=== PATIENT | female | born 1970 | race Caucasian/White ===

== ENCOUNTER 2017-12-10 20:43 | Emergency (ER) | payer MEDICAID, OTHER ==
[~2017-12-10] VITALS: Ht 149.9 cm; Wt 63.6 kg
[~2017-12-10 20:43] MED LIST: COMP-13; ESOM20CA33 PO; PNV1TABL56 PO
[2017-12-10] MEDS ORDERED: magnesium oxide 400mg tablet PO ONE (21:30)
[2017-12-10] MEDS ORDERED: potassium Cl 20 mEq SR tablet PO ONE (21:30)
[2017-12-10] MEDS ORDERED: folic acid 1mg tablet PO ONE (21:30)
[2017-12-10] MEDS ORDERED: thiamine 100mg tablet PO STA (21:37)
[2017-12-10 22:05] LABS: HEMATOCRIT 35.8 % (35.0-45.0); HEMOGLOBIN 11.9 g/dl (12.0-16.0); MEAN CORPUSCULAR HEMOGLOBIN 27.3 PG (27.0-31.0); MEAN CORPUSCULAR HGB CONC 33.1 % (33.0-36.5); MEAN CORPUSCULAR VOLUME 82.4 FL (78-98); MEAN PLATELET VOLUME 8.1 FL (7.4-10.4); PLATELET COUNT 407 X10'3 (140-440); RED BLOOD COUNT 4.35 X10'6 (4.20-5.60); RED CELL DISTRIBUTION WIDTH 19.9 % (11.5-14.5); WHITE BLOOD COUNT 5.6 X10'3 (4.5-11.0)
[2017-12-10 22:07] LABS: CLARITY,URINE Clear (Clear); COLOR,URINE Yellow (Yellow); GLUCOSE, URINE Negative (Neg); KETONES,URINE Negative (Neg); LEUKOCYTE ESTERASE ,URINE Negative (Neg); NITRITES, URINE Negative (Neg); OCCULT BLOOD,URINE Negative (Neg); PH,URINE 5.5 (4.8-8.0); PROTEIN,URINE Negative (Neg); UROBILINOGEN,URINE 0.2 E.U/dL (0.2-1.0)
[2017-12-10 22:09] LABS: UA COLLECTION TYPE CLN CATCH MIDSTREAM
[2017-12-10 22:16] LABS: PARTIAL THROMBOPLASTIN TIME 29 SECONDS (22-32); PROTHROMBIN TIME 10.1 SECONDS (9.0-12.0)
[2017-12-10 22:23] LABS: ALANINE AMINOTRANSFERASE 35 U/L (12-78); ALBUMIN 3.9 G/DL (3.4-5.0); ALBUMIN/GLOBULIN RATIO 0.9 (1.1-1.5); ALKALINE PHOSPHATASE 79 IU/L (46-116); ANION GAP 12 (8-16); ASPARTATE AMINO TRANSFERASE 37 U/L (10-37); BILIRUBIN,TOTAL 0.2 MG/DL (0.1-1.0); BLOOD UREA NITROGEN 5 MG/DL (7-18); BUN/CREATININE RATIO 9.6 (6.6-38.0); CALCIUM 8.5 MG/DL (8.5-10.1); CHLORIDE 103 MMOL/L (99-107); CREATININE 0.52 MG/DL (0.40-0.90); GLUCOSE 82 MG/DL (70-104); LIPASE 255 U/L (73-393); POTASSIUM 3.5 MMOL/L (3.5-5.1); SODIUM 143 MMOL/L (135-145); TOTAL CARBON DIOXIDE 27.8 MMOL/L (24-32); TOTAL PROTEIN 8.2 G/DL (6.4-8.2); eGFR > 90 ML/MIN
[2017-12-10 22:26] LABS: URINE AMPHETAMINE SCREEN NEGATIVE (Neg); URINE BARBITUATE SCREEN NEGATIVE (Neg); URINE BENZODIAZEPINES SCREEN NEGATIVE (Neg); URINE CANNABINOID SCREEN NEGATIVE (Neg); URINE COCAINE SCREEN NEGATIVE (Neg); URINE METHADONE SCREEN NEGATIVE (Neg); URINE OPIATE SCREEN NEGATIVE (Neg); URINE PHENCYCLIDINE SCREEN NEGATIVE (Neg)
[2017-12-10 22:31] LABS: ANISOCYTOSIS 2+; ELLIPTOCYTES FEW; PLATELET ESTIMATE NORMAL; TARGET CELLS 1+; TOTAL CELLS COUNTED 100
[2017-12-10 22:48] LABS: ETHANOL 0.313 GM/DL (0.0-0.010)
== END 2017-12-10 23:04 | disposition home or self-care (01) ==
LOC: ER 20:44
DX: M54.10 Radiculopathy, site unspecified (principal); F10.129 Alcohol abuse with intoxication, unspecified; I10 Essential (primary) hypertension; E11.9 Type 2 diabetes mellitus without complications
CPT/HCPCS: 36415; 80053; 80305; 80320; 81003; 83690; 83735; 84484; 85025; 85610; 85730; 86885; 86900; 86901; 93005; 99285

== ENCOUNTER 2018-06-14 17:43 | Inpatient (IN) | payer OTHER ==
[~2018-06-14] VITALS: Ht 167.6 cm; Wt 54.0 kg
[2018-06-14 18:18] LABS: HEMATOCRIT 22.9 % (35.0-45.0); HEMOGLOBIN 7.6 g/dl (12.0-16.0); MEAN CORPUSCULAR HEMOGLOBIN 28.4 PG (27.0-31.0); MEAN CORPUSCULAR VOLUME 85.9 FL (78-98); MEAN PLATELET VOLUME 8.3 FL (7.4-10.4); PLATELET COUNT 337 X10'3 (140-440); RED BLOOD COUNT 2.67 X10'6 (4.20-5.60); RED CELL DISTRIBUTION WIDTH 23.4 % (11.5-14.5)
[2018-06-14 18:29] LABS: INR 1.2 INR; PROTHROMBIN TIME 12.1 SECONDS (9.0-12.0)
[2018-06-14 18:34] LABS: TOTAL CELLS COUNTED 100
[2018-06-14 18:36] LABS: ALANINE AMINOTRANSFERASE 33 U/L (12-78); ALBUMIN 1.7 G/DL (3.4-5.0); ALBUMIN/GLOBULIN RATIO 0.3 (1.1-1.5); ALKALINE PHOSPHATASE 317 IU/L (46-116); ANION GAP 22 (8-16); ASPARTATE AMINO TRANSFERASE 112 U/L (10-37); BILIRUBIN,TOTAL 3.2 MG/DL (0.1-1.0); BLOOD UREA NITROGEN 11 MG/DL (7-18); CALCIUM 7.7 MG/DL (8.5-10.1); CHLORIDE 93 MMOL/L (99-107); CREATININE 1.38 MG/DL (0.40-0.90); GLUCOSE 92 MG/DL (70-104); LIPASE 82 U/L (73-393); PLATELET ESTIMATE NORMAL; SODIUM 131 MMOL/L (135-145); TARGET CELLS 2+; TOTAL CARBON DIOXIDE 16.2 MMOL/L (24-32); TOTAL PROTEIN 6.9 G/DL (6.4-8.2); eGFR 41 ML/MIN
[2018-06-14 18:37] LABS: HYPOCHROMASIA 1+
[2018-06-14 18:39] LABS: ANISOCYTOSIS 2+; ELLIPTOCYTES FEW
[2018-06-14 18:40] LABS: ETHANOL 0.339 GM/DL (0.0-0.010); POLYCHROMASIA FEW
[2018-06-14 18:44] LABS: POTASSIUM 2.4 MMOL/L (3.5-5.1)
[2018-06-14] MEDS ORDERED: potassium 10mEq/100ml NS w/LIDOcaine (10mg/bag) IV ONE (18:45)
[2018-06-14] MEDS ORDERED: potassium Cl 20 mEq SR tablet PO STA (18:45)
[2018-06-14] MEDS ORDERED: normal saline 1000ML IV soln IVB ONE ×2 (18:50)
[2018-06-14] MEDS: magnesium 1gm/100ml D5W IVPB 100 ML IV SCH ×2 (19:16→22:22)
[2018-06-14] MEDS ORDERED: Ivermectin 3mg tablet PO ONE ×2 (20:00)
[2018-06-14 20:29] LABS: HCG SERUM QL NEGATIVE
[2018-06-14 20:59] LABS: CLARITY,URINE CLOUDY (Clear); COLOR,URINE YELLOW (Yellow); GLUCOSE, URINE NEGATIVE (Neg); KETONES,URINE TRACE mg/dl (Neg); LEUKOCYTE ESTERASE ,URINE LARGE (Neg); NITRITES, URINE NEGATIVE (Neg); OCCULT BLOOD,URINE LARGE (Neg); PROTEIN,URINE TRACE mg/dl (Neg)
[2018-06-14 21:00] LABS: UA COLLECTION TYPE FOLEY CATH
[2018-06-14 21:06] LABS: SQUAMOUS EPITHELIAL CELL,UR MODERATE /LPF (FEW); WBC,URINE TNTC /HPF (0-4)
[2018-06-14 21:07] LABS: BACTERIA,URINE 2+ /HPF (Neg); MUCUS STRANDS FEW /LPF (Neg); WBC CLUMPS,URINE FEW /HPF (NEGATIVE)
[2018-06-14] MEDS ORDERED: CefTRIAXone 2gm/D5W 50ml 50 ML IV ONE (22:00)
[2018-06-14] MEDS ORDERED: thiamine 100mg/ml 2ml inj. IV ONE (22:05)
[2018-06-14] MEDS ORDERED: ondansetron/PF 4mg/2ml inj IV ONE (22:05)
[2018-06-14] MEDS ORDERED: vancomycin/NS 1 GM ADD-VANTAGE 250 ML IV ONE (22:30)
[2018-06-14] MEDS ORDERED: normal saline 1000ml 1,000 ML IV SCH (23:38)
[2018-06-14] MEDS ORDERED: magnesium 4gm in 100ml NS 100 ML IV PRN (23:40)
[2018-06-14] MEDS ORDERED: acetaminophen 325mg tablet PO PRN (23:40)
[2018-06-14] MEDS ORDERED: potassium Cl 40MEQ/NS 500ml 500 ML IV PRN ×2 (23:40)
[2018-06-14] MEDS ORDERED: magnesium hydroxide 30ml (MOM) UD suspension PO PRN (23:40)
[2018-06-14] MEDS ORDERED: magnesium 1gm/100ml D5W IVPB 100 ML IV PRN (23:40)
[2018-06-14] MEDS ORDERED: mag hydrox/Alum hydrox/simeth 30ml oral suspension PO PRN (23:40)
[2018-06-14 23:43] LABS: URINE AMPHETAMINE SCREEN NEGATIVE (Neg); URINE BARBITUATE SCREEN NEGATIVE (Neg); URINE BENZODIAZEPINES SCREEN NEGATIVE (Neg); URINE CANNABINOID SCREEN NEGATIVE (Neg); URINE COCAINE SCREEN NEGATIVE (Neg); URINE METHADONE SCREEN NEGATIVE (Neg); URINE OPIATE SCREEN NEGATIVE (Neg); URINE PHENCYCLIDINE SCREEN NEGATIVE (Neg)
[2018-06-14] MEDS ORDERED: haloperidol lactate 5mg/ml inj IM PRN (23:50)
[2018-06-14] MEDS ORDERED: haloperidol 5mg tablet PO PRN (23:50)
[2018-06-15] VITALS (12 sets, daily range): BP systolic 102–138; BP diastolic 56–81
[2018-06-15] MEDS ORDERED: Potassium Cl inj 20 MEQ in normal saline 1000ml 990 ML IV SCH ×2
[2018-06-15] MEDS: metroNIDAZOLE-Flagyl 500mg/NS 100 ML IV SCH ×2 (00:01→10:20)
[2018-06-15] MEDS: potassium Cl 20 mEq SR tablet PO PRN ×4 (00:01→20:25)
[2018-06-15 00:06] LABS: PHOSPHORUS 2.8 MG/DL (2.3-4.5)
[2018-06-15] MEDS: potassium Cl 20mEq in NS 1,000 ML IV SCH ×3 (00:19→17:51)
[2018-06-15] MEDS: nicotine 14mg patch - 24hr TD SCH ×2 (01:43→10:15)
[2018-06-15] MEDS: LORazepam 2 mg/ml vial IV PRN (05:40)
[2018-06-15 06:02] LABS: MEAN CORPUSCULAR HEMOGLOBIN 28.7 PG (27.0-31.0); MEAN CORPUSCULAR HGB CONC 33.1 % (33.0-36.5); MEAN CORPUSCULAR VOLUME 86.8 FL (78-98); MEAN PLATELET VOLUME 8.7 FL (7.4-10.4); PLATELET COUNT 249 X10'3 (140-440); RED BLOOD COUNT 2.41 X10'6 (4.20-5.60); RED CELL DISTRIBUTION WIDTH 23.6 % (11.5-14.5); WHITE BLOOD COUNT 17.5 X10'3 (4.5-11.0)
[2018-06-15 06:18] LABS: HEMOGLOBIN 6.9 g/dl (12.0-16.0)
[2018-06-15 06:19] LABS: HEMATOCRIT 20.9 % (35.0-45.0)
[2018-06-15 06:25] LABS: ALANINE AMINOTRANSFERASE 30 U/L (12-78); ALBUMIN 1.4 G/DL (3.4-5.0); ALBUMIN/GLOBULIN RATIO 0.3 (1.1-1.5); ALKALINE PHOSPHATASE 320 IU/L (46-116); ANION GAP 18 (8-16); ASPARTATE AMINO TRANSFERASE 151 U/L (10-37); BILIRUBIN,TOTAL 3.1 MG/DL (0.1-1.0); BLOOD UREA NITROGEN 8 MG/DL (7-18); BUN/CREATININE RATIO 9.2 (6.6-38.0); CALCIUM 6.9 MG/DL (8.5-10.1); CHLORIDE 104 MMOL/L (99-107); CHOL/HDL RATIO 11.2 (0.00-4.99); CHOLESTEROL 101 MG/DL (0-200); CREATININE 0.87 MG/DL (0.40-0.90); GLUCOSE 51 MG/DL (70-104); HDL CHOLESTEROL 9 MG/DL (35-60); LDL CHOLESTEROL 67 MG/DL (50-100); MAGNESIUM 1.9 MG/DL (1.5-2.4); SODIUM 137 MMOL/L (135-145); TOTAL CARBON DIOXIDE 15.2 MMOL/L (24-32); TOTAL PROTEIN 5.9 G/DL (6.4-8.2); TRIGLYCERIDES 158 MG/DL (20-135); eGFR 69 ML/MIN
[2018-06-15 06:41] LABS: POTASSIUM 2.8 MMOL/L (3.5-5.1)
[2018-06-15 07:13] LABS: TOTAL CELLS COUNTED 100
[2018-06-15 07:14] LABS: ELLIPTOCYTES FEW; PLATELET ESTIMATE NORMAL; TARGET CELLS 2+; TOXIC GRANULATION 2+
[2018-06-15 07:15] LABS: ANISOCYTOSIS 2+; HYPOCHROMASIA 1+; POLYCHROMASIA FEW
[2018-06-15 07:16] LABS: SMUDGE CELLS 2+
[2018-06-15] MEDS ORDERED: folic acid inj. 2 MG, thiamine inj. 100 MG, MVI, adult No.4 with vit. K 10 ML in dextro... IV SCH ×4 (08:00)
[2018-06-15] MEDS: K and/or MAG REPLACEMENT MC SCH (08:00)
[2018-06-15 08:22] LABS: C DIFF ANTIGEN POSITIVE (NEGATIVE); C DIFF SPECIMEN=DIARRHEA? ACCEPTABLE; C DIFFICILE TOXINS A&B POSITIVE (Neg)
[2018-06-15] MEDS: vancomycin 250MG/10ML UD oral solution 10ML BOTTLE PO SCH ×3 (11:59→20:25)
[2018-06-15] MEDS: folic acid 1mg tablet PO SCH (12:42)
[2018-06-15] MEDS: thiamine 100mg tablet PO SCH (12:42)
[2018-06-15] MEDS: multivitamins, therapeutics tablet PO SCH (12:42)
[2018-06-15] MEDS: vancomycin/NS 1 GM ADD-VANTAGE 250 ML IV SCH ×2 (12:43→23:00)
[2018-06-15] MEDS ORDERED: NO HOME MEDS (14:21)
[2018-06-15] MEDS ORDERED: CefTRIAXone/D5W-Rocephin 1gm 50 ML IV SCH (16:10)
[2018-06-15] MEDS ORDERED: normal saline 1000ml 1,000 ML IV ONE (20:55)
[2018-06-15] MEDS ORDERED: acetaminophen 325mg tablet PO ONE (20:55)
[2018-06-15] MEDS ORDERED: vancomycin/NS 1 GM ADD-VANTAGE 250 ML IV SCH (23:00)
[2018-06-16] VITALS (8 sets, daily range): BP systolic 95–124; BP diastolic 62–74
[2018-06-16 01:11] LABS: HEMATOCRIT 30.6 % (35.0-45.0); HEMOGLOBIN 10.4 g/dl (12.0-16.0); MEAN CORPUSCULAR HEMOGLOBIN 29.9 PG (27.0-31.0); MEAN CORPUSCULAR VOLUME 87.7 FL (78-98); MEAN PLATELET VOLUME 9.4 FL (7.4-10.4); PLATELET COUNT 157 X10'3 (140-440); RED BLOOD COUNT 3.49 X10'6 (4.20-5.60); RED CELL DISTRIBUTION WIDTH 20.3 % (11.5-14.5)
[2018-06-16] MEDS: vancomycin 250MG/10ML UD oral solution 10ML BOTTLE PO SCH ×4 (01:42→19:31)
[2018-06-16 02:22] LABS: ANISOCYTOSIS 2+; HYPOCHROMASIA 1+; PLATELET ESTIMATE NORMAL; TOTAL CELLS COUNTED 100
[2018-06-16 02:23] LABS: TARGET CELLS 1+; TOXIC GRANULATION 1+
[2018-06-16] MEDS: potassium Cl 20mEq in NS 1,000 ML IV SCH ×3 (04:19→19:31)
[2018-06-16] MEDS: potassium Cl 20 mEq SR tablet PO PRN ×2 (05:09→09:24)
[2018-06-16 05:34] LABS: BASOPHILS % (AUTO) 0.2 % (0-1); EOSINOPHILS # (AUTO) 0.1 X10'3 (0-0.9); EOSINOPHILS % (AUTO) 0.9 % (0-6); HEMATOCRIT 27.4 % (35.0-45.0); HEMOGLOBIN 9.5 g/dl (12.0-16.0); LYMPHOCYTES # (AUTO) 0.8 X10'3 (1.1-4.8); LYMPHOCYTES % (AUTO) 6.6 % (21-51); MEAN CORPUSCULAR HEMOGLOBIN 30.3 PG (27.0-31.0); MEAN CORPUSCULAR HGB CONC 34.7 % (33.0-36.5); MEAN CORPUSCULAR VOLUME 87.3 FL (78-98); MEAN PLATELET VOLUME 9.5 FL (7.4-10.4); MONOCYTES # (AUTO) 0.3 X10'3 (0-0.9); MONOCYTES % (AUTO) 2.3 % (2-12); NEUTROPHILS # (AUTO) 11.2 X10'3 (1.8-7.7); PLATELET COUNT 178 X10'3 (140-440); RED BLOOD COUNT 3.14 X10'6 (4.20-5.60); RED CELL DISTRIBUTION WIDTH 19.3 % (11.5-14.5); WHITE BLOOD COUNT 12.4 X10'3 (4.5-11.0)
[2018-06-16 05:50] LABS: ALANINE AMINOTRANSFERASE 34 U/L (12-78); ALBUMIN 1.3 G/DL (3.4-5.0); ALKALINE PHOSPHATASE 278 IU/L (46-116); ANION GAP 12 (8-16); ASPARTATE AMINO TRANSFERASE 117 U/L (10-37); BILIRUBIN,TOTAL 6.3 MG/DL (0.1-1.0); BLOOD UREA NITROGEN 6 MG/DL (7-18); BUN/CREATININE RATIO 7.7 (6.6-38.0); CALCIUM 6.8 MG/DL (8.5-10.1); CHLORIDE 106 MMOL/L (99-107); CREATININE 0.78 MG/DL (0.40-0.90); GLUCOSE 55 MG/DL (70-104); MAGNESIUM 1.4 MG/DL (1.5-2.4); SODIUM 135 MMOL/L (135-145); TOTAL CARBON DIOXIDE 16.9 MMOL/L (24-32); eGFR 79 ML/MIN
[2018-06-16 06:09] LABS: ALBUMIN/GLOBULIN RATIO 0.3 (1.1-1.5); POTASSIUM 3.3 MMOL/L (3.5-5.1); TOTAL PROTEIN 5.4 G/DL (6.4-8.2)
[2018-06-16] MEDS: K and/or MAG REPLACEMENT MC SCH (08:00)
[2018-06-16 08:37] LABS: PLATELET ESTIMATE NORMAL
[2018-06-16 08:38] LABS: ANISOCYTOSIS 2+; HYPOCHROMASIA 1+; POLYCHROMASIA FEW; TARGET CELLS FEW
[2018-06-16] MEDS: multivitamins, therapeutics tablet PO SCH (09:20)
[2018-06-16] MEDS: thiamine 100mg tablet PO SCH (09:21)
[2018-06-16] MEDS: folic acid 1mg tablet PO SCH (09:21)
[2018-06-16] MEDS: magnesium Cl slow-release 64mg tablet PO PRN (09:25)
[2018-06-16] MEDS: nicotine 14mg patch - 24hr TD SCH (09:28)
[2018-06-16] MEDS ORDERED: VANCOMYCIN LEVEL IV NR (10:30)
[2018-06-16] MEDS: vancomycin/NS 1 GM ADD-VANTAGE 250 ML IV SCH ×2 (11:48→22:54)
[2018-06-16] MEDS ORDERED: normal saline 500ml IV soln 500 ML IV ONE (20:45)
[2018-06-16] MEDS: diphenhydrAMINE 50 mg/ml inj IV PRN (21:20)
[2018-06-16] MEDS: LORazepam 2 mg/ml vial IV PRN (22:47)
[2018-06-17] VITALS: BP 120/73
[2018-06-17] MEDS: LORazepam 1 MG tablet PO PRN (00:53)
[2018-06-17] MEDS: vancomycin 250MG/10ML UD oral solution 10ML BOTTLE PO SCH ×4 (01:09→19:34)
[2018-06-17] MEDS: temazepam 15mg capsule PO PRN (01:10)
[2018-06-17] MEDS: LORazepam 2 mg/ml vial IV PRN ×7 (02:37→20:20)
[2018-06-17] MEDS: dextrose 50%-water 50ml dispensing syringe IV PRN ×2 (03:17→11:23)
[2018-06-17] MEDS: potassium Cl 20mEq in NS 1,000 ML IV SCH (04:26)
[2018-06-17 05:53] LABS: HEMATOCRIT 28.6 % (35.0-45.0); HEMOGLOBIN 9.8 g/dl (12.0-16.0); MEAN CORPUSCULAR HEMOGLOBIN 29.7 PG (27.0-31.0); MEAN CORPUSCULAR HGB CONC 34.2 % (33.0-36.5); MEAN CORPUSCULAR VOLUME 86.9 FL (78-98); MEAN PLATELET VOLUME 9.9 FL (7.4-10.4); PLATELET COUNT 173 X10'3 (140-440); RED CELL DISTRIBUTION WIDTH 20.2 % (11.5-14.5); WHITE BLOOD COUNT 12.2 X10'3 (4.5-11.0)
[2018-06-17 06:23] LABS: ANISOCYTOSIS 2+; PLATELET ESTIMATE NORMAL; POLYCHROMASIA FEW; TARGET CELLS FEW; TOTAL CELLS COUNTED 100
[2018-06-17 07:00] VITALS: BP 107/72
[2018-06-17 07:02] LABS: ALANINE AMINOTRANSFERASE 34 U/L (12-78); ALBUMIN 1.3 G/DL (3.4-5.0); ALKALINE PHOSPHATASE 331 IU/L (46-116); ANION GAP 11 (8-16); ASPARTATE AMINO TRANSFERASE 123 U/L (10-37); BILIRUBIN,TOTAL 5.4 MG/DL (0.1-1.0); BLOOD UREA NITROGEN 4 MG/DL (7-18); CHLORIDE 108 MMOL/L (99-107); CREATININE 1.01 MG/DL (0.40-0.90); GLUCOSE 76 MG/DL (70-104); MAGNESIUM 1.2 MG/DL (1.5-2.4); SODIUM 135 MMOL/L (135-145); TOTAL CARBON DIOXIDE 15.8 MMOL/L (24-32); eGFR 59 ML/MIN
[2018-06-17 07:03] LABS: ALBUMIN/GLOBULIN RATIO 0.3 (1.1-1.5); POTASSIUM 3.6 MMOL/L (3.5-5.1); TOTAL PROTEIN 5.8 G/DL (6.4-8.2)
[2018-06-17] MEDS: K and/or MAG REPLACEMENT MC SCH (08:00)
[2018-06-17] MEDS: folic acid 1mg tablet PO SCH (08:03)
[2018-06-17] MEDS: nicotine 14mg patch - 24hr TD SCH (08:03)
[2018-06-17] MEDS: multivitamins, therapeutics tablet PO SCH (08:04)
[2018-06-17] MEDS: thiamine 100mg tablet PO SCH (08:04)
[2018-06-17] MEDS: vancomycin/NS 1 GM ADD-VANTAGE 250 ML IV SCH (11:13)
[2018-06-17 11:27] VITALS: BP 102/67
[2018-06-17] MEDS ORDERED: dextrose 5%-1/2 normal saline 1,000 ML IV SCH (11:40)
[2018-06-17] MEDS: magnesium Cl slow-release 64mg tablet PO PRN (14:32)
[2018-06-17] MEDS ORDERED: Permethrin 1% 59ml topical rinse TP ONE (15:55)
[2018-06-17 18:00] VITALS: BP 97/63
[2018-06-17] MEDS ORDERED: normal saline 500ml IV soln 500 ML IV ONE ×2 (20:05→21:35)
[2018-06-18] VITALS (7 sets, daily range): BP systolic 93–120; BP diastolic 64–82
[2018-06-18] MEDS: vancomycin/NS 1 GM ADD-VANTAGE 250 ML IV SCH ×3 (00:02→23:30)
[2018-06-18] MEDS: potassium Cl 20mEq in D5-NS 1,000 ML IV SCH ×4 (00:02→21:11)
[2018-06-18] MEDS: LORazepam 1 MG tablet PO PRN ×2 (00:10→19:46)
[2018-06-18] MEDS: LORazepam 2 mg/ml vial IV PRN ×2 (02:54→05:09)
[2018-06-18] MEDS: diphenhydrAMINE 50 mg/ml inj IV PRN (02:59)
[2018-06-18] MEDS: vancomycin 250MG/10ML UD oral solution 10ML BOTTLE PO SCH ×4 (02:59→19:46)
[2018-06-18] MEDS ORDERED: morphine 2 MG/ML inj. syringe IV PRN (05:30)
[2018-06-18 05:56] LABS: ABG BASE EXCESS -10.5 mmol/L (-2.0-3.0); ABG OXYGEN SATURATION 96.5 % (95-98); ABG PCO2 (T) 26.9 mmHg (32.0-45.0); ABG PH (T) 7.335 (7.350-7.450); ABG PO2 (T) 98.8 mmHg (83-108); FCOHb 0.3 % (0.5-1.5); FLOW 2 L/min; FMetHb 0.3 % (0.3-1.12); FO2Hb 95.9 % (94-100); PATIENT TEMPERATURE 37.1; TOTAL HEMOGLOBIN 9.4 G/dl (12.0-16.0)
[2018-06-18 06:15] LABS: HEMATOCRIT 28.8 % (35.0-45.0); HEMOGLOBIN 9.8 g/dl (12.0-16.0); MEAN CORPUSCULAR HEMOGLOBIN 29.9 PG (27.0-31.0); MEAN CORPUSCULAR HGB CONC 34.1 % (33.0-36.5); MEAN CORPUSCULAR VOLUME 87.9 FL (78-98); MEAN PLATELET VOLUME 8.5 FL (7.4-10.4); PLATELET COUNT 212 X10'3 (140-440); RED BLOOD COUNT 3.28 X10'6 (4.20-5.60); RED CELL DISTRIBUTION WIDTH 20.5 % (11.5-14.5); WHITE BLOOD COUNT 10.2 X10'3 (4.5-11.0)
[2018-06-18 06:47] LABS: ALANINE AMINOTRANSFERASE 32 U/L (12-78); ALBUMIN 1.4 G/DL (3.4-5.0); ALKALINE PHOSPHATASE 330 IU/L (46-116); ASPARTATE AMINO TRANSFERASE 102 U/L (10-37); CALCIUM 7.4 MG/DL (8.5-10.1); GLUCOSE 119 MG/DL (70-104); MAGNESIUM 2.6 MG/DL (1.5-2.4); TOTAL CARBON DIOXIDE 17.9 MMOL/L (24-32); TROPONIN I < 0.04 NG/ML (0.0-0.05)
[2018-06-18 06:56] LABS: TOTAL CELLS COUNTED 100
[2018-06-18 06:57] LABS: ANISOCYTOSIS 2+
[2018-06-18 07:03] LABS: HYPOCHROMASIA 1+; PLATELET ESTIMATE NORMAL; POLYCHROMASIA 1+; TARGET CELLS 1+
[2018-06-18 07:07] LABS: ALBUMIN/GLOBULIN RATIO 0.3 (1.1-1.5)
[2018-06-18 07:14] LABS: ANION GAP 10 (8-16); BLOOD UREA NITROGEN 4 MG/DL (7-18); CREATININE 1.33 MG/DL (0.40-0.90); POTASSIUM 3.3 MMOL/L (3.5-5.1); SODIUM 140 MMOL/L (135-145); eGFR 43 ML/MIN
[2018-06-18 07:16] LABS: CHLORIDE 112 MMOL/L (99-107)
[2018-06-18] MEDS: K and/or MAG REPLACEMENT MC SCH (08:00)
[2018-06-18] MEDS: folic acid 1mg tablet PO SCH (08:24)
[2018-06-18] MEDS: thiamine 100mg tablet PO SCH (08:24)
[2018-06-18] MEDS: multivitamins, therapeutics tablet PO SCH (08:24)
[2018-06-18] MEDS: nicotine 14mg patch - 24hr TD SCH (08:35)
[2018-06-18] MEDS ORDERED: potassium Cl 20 mEq SR tablet PO PRN (12:25)
[2018-06-18] MEDS ORDERED: potassium Cl 40MEQ/NS 500ml 500 ML IV PRN ×2 (12:25)
[2018-06-18] MEDS ORDERED: magnesium 1gm/100ml D5W IVPB 100 ML IV PRN (12:25)
[2018-06-18] MEDS ORDERED: magnesium Cl slow-release 64mg tablet PO PRN (12:25)
[2018-06-18] MEDS ORDERED: magnesium 4gm in 100ml NS 100 ML IV PRN (12:25)
[2018-06-18] MEDS ORDERED: LORazepam 1 MG tablet PO PRN (23:50)
[2018-06-18] MEDS ORDERED: LORazepam 2 mg/ml vial IV PRN (23:50)
[2018-06-19] VITALS: BP 120/75
[2018-06-19] MEDS: vancomycin 250MG/10ML UD oral solution 10ML BOTTLE PO SCH ×4 (02:10→21:13)
[2018-06-19] MEDS: potassium Cl 20mEq in D5-NS 1,000 ML IV SCH (05:45)
[2018-06-19 06:09] LABS: HEMATOCRIT 25.2 % (35.0-45.0); HEMOGLOBIN 8.4 g/dl (12.0-16.0); MEAN CORPUSCULAR HEMOGLOBIN 29.6 PG (27.0-31.0); MEAN CORPUSCULAR HGB CONC 33.1 % (33.0-36.5); MEAN CORPUSCULAR VOLUME 89.3 FL (78-98); MEAN PLATELET VOLUME 8.6 FL (7.4-10.4); PLATELET COUNT 223 X10'3 (140-440); RED BLOOD COUNT 2.82 X10'6 (4.20-5.60); RED CELL DISTRIBUTION WIDTH 21.5 % (11.5-14.5); WHITE BLOOD COUNT 10.7 X10'3 (4.5-11.0)
[2018-06-19 06:52] LABS: ALANINE AMINOTRANSFERASE 36 U/L (12-78); ALBUMIN 1.2 G/DL (3.4-5.0); ALKALINE PHOSPHATASE 266 IU/L (46-116); ANION GAP 13 (8-16); ASPARTATE AMINO TRANSFERASE 90 U/L (10-37); BILIRUBIN,TOTAL 4.8 MG/DL (0.1-1.0); BLOOD UREA NITROGEN 4 MG/DL (7-18); BUN/CREATININE RATIO 2.4 (6.6-38.0); CALCIUM 7.3 MG/DL (8.5-10.1); CHLORIDE 116 MMOL/L (99-107); CREATININE 1.68 MG/DL (0.40-0.90); GLUCOSE 141 MG/DL (70-104); MAGNESIUM 2.1 MG/DL (1.5-2.4); POTASSIUM 3.6 MMOL/L (3.5-5.1); SODIUM 143 MMOL/L (135-145); eGFR 33 ML/MIN
[2018-06-19 06:54] LABS: ALBUMIN/GLOBULIN RATIO 0.3 (1.1-1.5); TOTAL PROTEIN 5.5 G/DL (6.4-8.2)
[2018-06-19 07:01] LABS: TOTAL CARBON DIOXIDE 14.5 MMOL/L (24-32)
[2018-06-19 07:04] VITALS: BP 95/66
[2018-06-19 07:19] LABS: PLATELET ESTIMATE NORMAL; TOTAL CELLS COUNTED 100
[2018-06-19 07:20] LABS: ANISOCYTOSIS 3+; HYPOCHROMASIA 1+; POLYCHROMASIA 1+; TARGET CELLS 1+
[2018-06-19] MEDS: K and/or MAG REPLACEMENT MC SCH (08:00)
[2018-06-19] MEDS: multivitamins, therapeutics tablet PO SCH (08:59)
[2018-06-19] MEDS: thiamine 100mg tablet PO SCH (08:59)
[2018-06-19] MEDS: folic acid 1mg tablet PO SCH (08:59)
[2018-06-19] MEDS: nicotine 14mg patch - 24hr TD SCH (09:00)
[2018-06-19] MEDS: sodium bicarbonate (8.4%) inj. 100 MEQ in dextrose 5%-water 1,000 ML IV SCH ×2 (10:35→21:14)
[2018-06-19 11:30] VITALS: BP 114/71
[2018-06-19] MEDS: vancomycin/NS 1 GM ADD-VANTAGE 250 ML IV SCH (13:29)
[2018-06-19] MEDS: lactobacillus rhamnosus 10,000 MMU CELLS/CAPSULE PO SCH ×2 (13:30→21:13)
[2018-06-19] MEDS: albuterol 2.5 MG/3 ML nebule NEB PRN ×2 (15:28→20:20)
[2018-06-19 20:00] VITALS: BP 105/68
[2018-06-20] VITALS: BP 102/56
[2018-06-20] MEDS: vancomycin 250MG/10ML UD oral solution 10ML BOTTLE PO SCH ×4 (03:29→20:02)
[2018-06-20] MEDS: sodium bicarbonate (8.4%) inj. 100 MEQ in dextrose 5%-water 1,000 ML IV SCH ×2 (05:55→08:54)
[2018-06-20 07:14] VITALS: BP 128/82
[2018-06-20] MEDS: K and/or MAG REPLACEMENT MC SCH (08:00)
[2018-06-20] MEDS: nicotine 14mg patch - 24hr TD SCH (08:00)
[2018-06-20] MEDS: folic acid 1mg tablet PO SCH (08:53)
[2018-06-20] MEDS: multivitamins, therapeutics tablet PO SCH (08:53)
[2018-06-20] MEDS: lactobacillus rhamnosus 10,000 MMU CELLS/CAPSULE PO SCH ×2 (08:53→20:01)
[2018-06-20] MEDS: Ivermectin 3mg tablet PO SCH (08:53)
[2018-06-20] MEDS: thiamine 100mg tablet PO SCH (08:53)
[2018-06-20] MEDS: vancomycin/NS 1 GM ADD-VANTAGE 250 ML IV SCH (10:38)
[2018-06-20 11:10] VITALS: BP 147/78
[2018-06-20] MEDS: albuterol 2.5 MG/3 ML nebule NEB SCH ×4 (12:00→23:14)
[2018-06-20] MEDS ORDERED: furosemide 40mg/4ml inj IV ONE (12:20)
[2018-06-20 13:21] LABS: MEAN PLATELET VOLUME 8.9 FL (7.4-10.4); RED CELL DISTRIBUTION WIDTH 22.1 % (11.5-14.5)
[2018-06-20 13:36] LABS: ALANINE AMINOTRANSFERASE 32 U/L (12-78); ALBUMIN 1.2 G/DL (3.4-5.0); ALKALINE PHOSPHATASE 259 IU/L (46-116); ANION GAP 10 (8-16); ASPARTATE AMINO TRANSFERASE 94 U/L (10-37); BILIRUBIN,TOTAL 5.3 MG/DL (0.1-1.0); BLOOD UREA NITROGEN 4 MG/DL (7-18); CALCIUM 7.5 MG/DL (8.5-10.1); CHLORIDE 112 MMOL/L (99-107); CREATININE 2.03 MG/DL (0.40-0.90); GLUCOSE 125 MG/DL (70-104); SODIUM 140 MMOL/L (135-145); TOTAL CARBON DIOXIDE 18.4 MMOL/L (24-32); eGFR 26 ML/MIN
[2018-06-20 13:41] LABS: ALBUMIN/GLOBULIN RATIO 0.3 (1.1-1.5); HEMATOCRIT 28.2 % (35.0-45.0); MEAN CORPUSCULAR HEMOGLOBIN 28.7 PG (27.0-31.0); MEAN CORPUSCULAR HGB CONC 31.9 % (33.0-36.5); PLATELET COUNT 291 X10'3 (140-440); RED BLOOD COUNT 3.14 X10'6 (4.20-5.60); TOTAL PROTEIN 5.9 G/DL (6.4-8.2); WHITE BLOOD COUNT 15.8 X10'3 (4.5-11.0)
[2018-06-20 13:46] LABS: POTASSIUM 2.9 MMOL/L (3.5-5.1)
[2018-06-20 14:07] LABS: ANISOCYTOSIS 3+; LARGE PLATELETS FEW; PLATELET ESTIMATE NORMAL; TOTAL CELLS COUNTED 100
[2018-06-20 14:08] LABS: HYPOCHROMASIA 1+; POLYCHROMASIA 1+; TARGET CELLS 1+
[2018-06-20 20:00] VITALS: BP 127/88
[2018-06-20] MEDS: potassium Cl 20 mEq SR tablet PO PRN (20:02)
[2018-06-21] VITALS: BP 130/73
[2018-06-21] MEDS: vancomycin 250MG/10ML UD oral solution 10ML BOTTLE PO SCH ×4 (01:51→20:11)
[2018-06-21] MEDS: potassium Cl 20 mEq SR tablet PO PRN (01:51)
[2018-06-21] MEDS: albuterol 2.5 MG/3 ML nebule NEB SCH ×6 (02:40→23:58)
[2018-06-21] MEDS: sodium bicarbonate (8.4%) inj. 100 MEQ in dextrose 5%-water 1,000 ML IV SCH (05:34)
[2018-06-21 06:05] LABS: ALBUMIN 1.1 G/DL (3.4-5.0); ANION GAP 12 (8-16); BLOOD UREA NITROGEN 5 MG/DL (7-18); CALCIUM 7.4 MG/DL (8.5-10.1); CHLORIDE 113 MMOL/L (99-107); CREATININE 2.52 MG/DL (0.40-0.90); GLUCOSE 113 MG/DL (70-104); MAGNESIUM 1.6 MG/DL (1.5-2.4); POTASSIUM 3.6 MMOL/L (3.5-5.1); SODIUM 142 MMOL/L (135-145); TOTAL CARBON DIOXIDE 17.5 MMOL/L (24-32); eGFR 20 ML/MIN
[2018-06-21 08:00] VITALS: BP 116/74
[2018-06-21] MEDS: K and/or MAG REPLACEMENT MC SCH (08:00)
[2018-06-21] MEDS: thiamine 100mg tablet PO SCH (08:43)
[2018-06-21] MEDS: nicotine 14mg patch - 24hr TD SCH (08:43)
[2018-06-21] MEDS: folic acid 1mg tablet PO SCH (08:43)
[2018-06-21] MEDS: lactobacillus rhamnosus 10,000 MMU CELLS/CAPSULE PO SCH ×2 (08:43→20:11)
[2018-06-21] MEDS: multivitamins, therapeutics tablet PO SCH (08:43)
[2018-06-21 11:00] VITALS: BP 127/75
[2018-06-21 11:55] LABS: HEMATOCRIT 29.5 % (35.0-45.0); HEMOGLOBIN 9.7 g/dl (12.0-16.0); MEAN CORPUSCULAR HEMOGLOBIN 29.6 PG (27.0-31.0); MEAN CORPUSCULAR HGB CONC 32.9 % (33.0-36.5); MEAN CORPUSCULAR VOLUME 90.1 FL (78-98); PLATELET COUNT 319 X10'3 (140-440); RED BLOOD COUNT 3.28 X10'6 (4.20-5.60); WHITE BLOOD COUNT 19.2 X10'3 (4.5-11.0)
[2018-06-21] MEDS: vancomycin/NS 1 GM ADD-VANTAGE 250 ML IV SCH (12:12)
[2018-06-21 13:15] LABS: TOTAL CELLS COUNTED 100
[2018-06-21 13:16] LABS: ANISOCYTOSIS 3+; PLATELET ESTIMATE NORMAL
[2018-06-21 13:18] LABS: TARGET CELLS 2+; TOXIC VACUOLATION 1+
[2018-06-21 13:21] LABS: POIKILOCYTOSIS FEW; POLYCHROMASIA FEW
[2018-06-21 20:00] VITALS: BP 113/81
[2018-06-22] VITALS: BP 110/64
[2018-06-22] MEDS: vancomycin 250MG/10ML UD oral solution 10ML BOTTLE PO SCH ×4 (02:50→21:12)
[2018-06-22] MEDS: albuterol 2.5 MG/3 ML nebule NEB SCH ×7 (04:24→23:06)
[2018-06-22 07:20] VITALS: BP 125/92
[2018-06-22] MEDS: K and/or MAG REPLACEMENT MC SCH ×2 (08:00→13:35)
[2018-06-22] MEDS: multivitamins, therapeutics tablet PO SCH (08:16)
[2018-06-22] MEDS: lactobacillus rhamnosus 10,000 MMU CELLS/CAPSULE PO SCH ×2 (08:16→21:12)
[2018-06-22] MEDS: folic acid 1mg tablet PO SCH (08:16)
[2018-06-22] MEDS: nicotine 14mg patch - 24hr TD SCH (08:16)
[2018-06-22] MEDS: thiamine 100mg tablet PO SCH (08:16)
[2018-06-22] MEDS ORDERED: VANCOMYCIN LEVEL IV ONE (10:30)
[2018-06-22 10:53] LABS: VANCOMYCIN,TROUGH 39.9 UG/ML (6.0-14.0)
[2018-06-22 11:08] LABS: HEMATOCRIT 27.8 % (35.0-45.0); HEMOGLOBIN 9.3 g/dl (12.0-16.0); MEAN CORPUSCULAR HEMOGLOBIN 30.2 PG (27.0-31.0); MEAN CORPUSCULAR HGB CONC 33.3 % (33.0-36.5); MEAN CORPUSCULAR VOLUME 90.4 FL (78-98); MEAN PLATELET VOLUME 9.8 FL (7.4-10.4); PLATELET COUNT 307 X10'3 (140-440); RED BLOOD COUNT 3.07 X10'6 (4.20-5.60); RED CELL DISTRIBUTION WIDTH 23.6 % (11.5-14.5); WHITE BLOOD COUNT 17.5 X10'3 (4.5-11.0)
[2018-06-22 11:14] LABS: ANION GAP 12 (8-16); BLOOD UREA NITROGEN 7 MG/DL (7-18); BUN/CREATININE RATIO 2.4 (6.6-38.0); CALCIUM 7.7 MG/DL (8.5-10.1); CHLORIDE 111 MMOL/L (99-107); CREATININE 2.91 MG/DL (0.40-0.90); GLUCOSE 112 MG/DL (70-104); POTASSIUM 3.2 MMOL/L (3.5-5.1); SODIUM 143 MMOL/L (135-145); TOTAL CARBON DIOXIDE 20.1 MMOL/L (24-32); eGFR 17 ML/MIN
[2018-06-22 11:29] VITALS: BP 107/80
[2018-06-22] MEDS: sodium bicarbonate (8.4%) inj. 100 MEQ in dextrose 5%-water 1,000 ML IV SCH ×2 (12:55→18:05)
[2018-06-22 12:56] LABS: TOTAL CELLS COUNTED 100
[2018-06-22 12:57] LABS: ANISOCYTOSIS 3+; PLATELET ESTIMATE NORMAL; TARGET CELLS 2+
[2018-06-22 12:58] LABS: POLYCHROMASIA FEW
[2018-06-22 12:59] LABS: LARGE PLATELETS FEW
[2018-06-22 13:04] LABS: TOXIC VACUOLATION FEW
[2018-06-22] MEDS ORDERED: potassium Cl oral solution 20 MEQ/15 ML PO PRN (13:35)
[2018-06-22] MEDS ORDERED: potassium Cl 40MEQ/NS 500ml 500 ML IV PRN ×2 (13:35)
[2018-06-22] MEDS: potassium Cl oral solution 20 MEQ/15 ML PO PRN ×3 (14:08→21:22)
[2018-06-22 20:00] VITALS: BP 145/87
[2018-06-22 21:33] LABS: ALANINE AMINOTRANSFERASE 27 U/L (12-78); ALKALINE PHOSPHATASE 251 IU/L (46-116); ANION GAP 9 (8-16); ASPARTATE AMINO TRANSFERASE 99 U/L (10-37); BILIRUBIN,TOTAL 5.7 MG/DL (0.1-1.0); BLOOD UREA NITROGEN 9 MG/DL (7-18); CALCIUM 7.6 MG/DL (8.5-10.1); CHLORIDE 109 MMOL/L (99-107); CREATININE 2.98 MG/DL (0.40-0.90); GLUCOSE 93 MG/DL (70-104); MAGNESIUM 1.6 MG/DL (1.5-2.4); POTASSIUM 3.6 MMOL/L (3.5-5.1); SODIUM 140 MMOL/L (135-145); TOTAL CARBON DIOXIDE 21.6 MMOL/L (24-32); eGFR 17 ML/MIN
[2018-06-22 21:35] LABS: ALBUMIN/GLOBULIN RATIO 0.2 (1.1-1.5); PHOSPHORUS 2.1 MG/DL (2.3-4.5); TOTAL PROTEIN 5.9 G/DL (6.4-8.2)
[2018-06-23] VITALS: BP 140/70
[2018-06-23 00:56] LABS: CLARITY,URINE SLIGHTLY CLOUDY (Clear); COLOR,URINE YELLOW (Yellow); GLUCOSE, URINE NEGATIVE (Neg); KETONES,URINE NEGATIVE (Neg); LEUKOCYTE ESTERASE ,URINE TRACE (Neg); NITRITES, URINE NEGATIVE (Neg); OCCULT BLOOD,URINE SMALL (Neg); PROTEIN,URINE TRACE mg/dl (Neg); UROBILINOGEN,URINE 0.2 E.U/dL (0.2-1.0)
[2018-06-23 01:03] LABS: UA COLLECTION TYPE OTHER
[2018-06-23 01:06] LABS: BACTERIA,URINE FEW /HPF (Neg); RBC,URINE 0-2 /HPF (0-2); SQUAMOUS EPITHELIAL CELL,UR MODERATE /LPF (FEW); WBC,URINE 0-4 /HPF (0-4); YEAST MANY /HPF (NEGATIVE)
[2018-06-23 01:07] LABS: TOTAL PROTEIN,URINE RANDOM 85.1 MG/DL
[2018-06-23] MEDS: vancomycin 250MG/10ML UD oral solution 10ML BOTTLE PO SCH ×4 (02:30→19:23)
[2018-06-23] MEDS: VANCOMYCIN LEVEL IV SCH (03:00)
[2018-06-23] MEDS: albuterol 2.5 MG/3 ML nebule NEB SCH ×6 (03:15→23:19)
[2018-06-23] MEDS ORDERED: vancomycin/NS 1 GM ADD-VANTAGE 250 ML IV PRN (08:00)
[2018-06-23] MEDS: K and/or MAG REPLACEMENT MC SCH ×2 (08:00)
[2018-06-23 08:12] VITALS: BP 151/104
[2018-06-23] MEDS: multivitamins, therapeutics tablet PO SCH (08:17)
[2018-06-23] MEDS: thiamine 100mg tablet PO SCH (08:17)
[2018-06-23] MEDS: folic acid 1mg tablet PO SCH (08:17)
[2018-06-23] MEDS: lactobacillus rhamnosus 10,000 MMU CELLS/CAPSULE PO SCH ×2 (08:17→19:23)
[2018-06-23] MEDS: nicotine 14mg patch - 24hr TD SCH (08:17)
[2018-06-23 11:07] LABS: HEMATOCRIT 26.9 % (35.0-45.0); HEMOGLOBIN 9.4 g/dl (12.0-16.0); MEAN CORPUSCULAR HEMOGLOBIN 31.4 PG (27.0-31.0); MEAN CORPUSCULAR VOLUME 89.9 FL (78-98); MEAN PLATELET VOLUME 10.4 FL (7.4-10.4); PLATELET COUNT 284 X10'3 (140-440); RED BLOOD COUNT 2.99 X10'6 (4.20-5.60); RED CELL DISTRIBUTION WIDTH 23.1 % (11.5-14.5); WHITE BLOOD COUNT 17.6 X10'3 (4.5-11.0)
[2018-06-23 11:29] LABS: ANISOCYTOSIS 3+; LYMPHOCYTES % (MANUAL) 4 % (21-51); MONOCYTES % (MANUAL) 6 % (2-12); NEUTROPHILS % (MANUAL) 90 % (42-75); PLATELET ESTIMATE NORMAL; TARGET CELLS 2+; TOTAL CELLS COUNTED 100
[2018-06-23 11:30] LABS: TOXIC VACUOLATION FEW
[2018-06-23 12:20] VITALS: BP 144/108
[2018-06-23 20:00] VITALS: BP 129/81
[2018-06-23] MEDS ORDERED: lactobacillus rhamnosus 10,000 MMU CELLS/CAPSULE PO SCH (20:00)
[2018-06-24] VITALS: BP 133/82
[2018-06-24] MEDS: sodium bicarbonate (8.4%) inj. 100 MEQ in dextrose 5%-water 1,000 ML IV SCH (02:19)
[2018-06-24] MEDS: vancomycin 250MG/10ML UD oral solution 10ML BOTTLE PO SCH ×4 (02:19→20:28)
[2018-06-24] MEDS: VANCOMYCIN LEVEL IV SCH (03:00)
[2018-06-24] MEDS: albuterol 2.5 MG/3 ML nebule NEB SCH ×6 (05:01→22:51)
[2018-06-24 06:53] LABS: ALBUMIN 1.1 G/DL (3.4-5.0); ANION GAP 10 (8-16); BLOOD UREA NITROGEN 16 MG/DL (7-18); BUN/CREATININE RATIO 4.9 (6.6-38.0); CALCIUM 7.5 MG/DL (8.5-10.1); CHLORIDE 106 MMOL/L (99-107); CREATININE 3.28 MG/DL (0.40-0.90); GLUCOSE 98 MG/DL (70-104); POTASSIUM 3.2 MMOL/L (3.5-5.1); SODIUM 139 MMOL/L (135-145); TOTAL CARBON DIOXIDE 23.1 MMOL/L (24-32); VANCOMYCIN,RANDOM 31.4 UG/ML; eGFR 15 ML/MIN
[2018-06-24 07:01] VITALS: BP 144/96
[2018-06-24] MEDS: K and/or MAG REPLACEMENT MC SCH ×2 (07:43)
[2018-06-24] MEDS: lactobacillus rhamnosus 10,000 MMU CELLS/CAPSULE PO SCH ×2 (08:05→20:28)
[2018-06-24] MEDS: multivitamins, therapeutics tablet PO SCH (08:05)
[2018-06-24] MEDS: thiamine 100mg tablet PO SCH (08:05)
[2018-06-24] MEDS: folic acid 1mg tablet PO SCH (08:05)
[2018-06-24] MEDS: nicotine 14mg patch - 24hr TD SCH (08:06)
[2018-06-24] MEDS: potassium Cl oral solution 20 MEQ/15 ML PO PRN ×3 (08:46→18:35)
[2018-06-24 11:49] VITALS: BP 140/82
[2018-06-24 12:37] LABS: HEMATOCRIT 27.6 % (35.0-45.0); HEMOGLOBIN 9.2 g/dl (12.0-16.0); MEAN CORPUSCULAR HGB CONC 33.4 % (33.0-36.5); MEAN CORPUSCULAR VOLUME 89.8 FL (78-98); MEAN PLATELET VOLUME 10.2 FL (7.4-10.4); PLATELET COUNT 328 X10'3 (140-440); RED BLOOD COUNT 3.08 X10'6 (4.20-5.60); RED CELL DISTRIBUTION WIDTH 25.2 % (11.5-14.5); WHITE BLOOD COUNT 16.6 X10'3 (4.5-11.0)
[2018-06-24 13:28] LABS: ANISOCYTOSIS 3+; HYPOCHROMASIA 1+; NUCLEATED RED BLOOD CELLS 3 /100WBC (0-0); PLATELET ESTIMATE NORMAL; TARGET CELLS 2+; TOTAL CELLS COUNTED 100
[2018-06-24] MEDS: albumin (human) 25% 100 ML IV solution IV SCH ×2 (15:14→23:48)
[2018-06-24] MEDS ORDERED: fluconazole 150mg tablet PO ONE (15:40)
[2018-06-24] MEDS ORDERED: furosemide 20 MG/2 ML vial IV SCH (16:00)
[2018-06-24] MEDS: fluconazole 100mg tablet PO SCH (16:29)
[2018-06-24] MEDS ORDERED: furosemide 20 MG/2 ML vial IV ONE (17:35)
[2018-06-24 19:00] VITALS: BP 153/85
[2018-06-24] MEDS: furosemide 40mg/4ml inj IV SCH (23:46)
[2018-06-25] VITALS (20 sets, daily range): BP systolic 116–196; BP diastolic 75–94
[2018-06-25 01:51] LABS: ABG BASE EXCESS -2.8 mmol/L (-2.0-3.0); ABG OXYGEN SATURATION 92.2 % (95-98); ABG PCO2 (T) 38.7 mmHg (32.0-45.0); ABG PH (T) 7.375 (7.350-7.450); ABG PO2 (T) 72.1 mmHg (83-108); ALLEN'S TEST Positive; FCOHb 0.2 % (0.5-1.5); FLOW 12 L/min; FMetHb 0.3 % (0.3-1.12); FO2Hb 91.7 % (94-100); PATIENT TEMPERATURE 37.5; TOTAL HEMOGLOBIN 8.6 G/dl (12.0-16.0)
[2018-06-25] MEDS: albuterol 2.5 MG/3 ML nebule NEB SCH ×2 (02:11→07:33)
[2018-06-25] MEDS ORDERED: guaiFENesin ER 600mg tablet PO ONE (02:15)
[2018-06-25] MEDS ORDERED: guaiFENesin/DM 10ml UD oral syrup PO PRN (02:15)
[2018-06-25] MEDS: vancomycin 250MG/10ML UD oral solution 10ML BOTTLE PO SCH ×4 (02:39→19:38)
[2018-06-25] MEDS: VANCOMYCIN LEVEL IV SCH (03:00)
[2018-06-25 05:05] LABS: HEMATOCRIT 23.7 % (35.0-45.0); HEMOGLOBIN 7.9 g/dl (12.0-16.0); MEAN CORPUSCULAR HEMOGLOBIN 29.9 PG (27.0-31.0); MEAN CORPUSCULAR HGB CONC 33.3 % (33.0-36.5); MEAN CORPUSCULAR VOLUME 89.7 FL (78-98); MEAN PLATELET VOLUME 9.8 FL (7.4-10.4); PLATELET COUNT 291 X10'3 (140-440); RED BLOOD COUNT 2.65 X10'6 (4.20-5.60); RED CELL DISTRIBUTION WIDTH 25.7 % (11.5-14.5); WHITE BLOOD COUNT 17.2 X10'3 (4.5-11.0)
[2018-06-25 05:23] LABS: VANCOMYCIN,RANDOM 30.4 UG/ML
[2018-06-25 06:56] LABS: TOTAL CELLS COUNTED 100
[2018-06-25 06:57] LABS: ANISOCYTOSIS 3+; HYPOCHROMASIA 1+; PLATELET ESTIMATE NORMAL; TARGET CELLS 2+
[2018-06-25] MEDS: multivitamins, therapeutics tablet PO SCH (07:56)
[2018-06-25] MEDS: thiamine 100mg tablet PO SCH (07:56)
[2018-06-25] MEDS: albumin (human) 25% 100 ML IV solution IV SCH ×3 (07:56→23:45)
[2018-06-25] MEDS: furosemide 40mg/4ml inj IV SCH ×3 (07:56→23:44)
[2018-06-25] MEDS: fluconazole 100mg tablet PO SCH (07:57)
[2018-06-25] MEDS: folic acid 1mg tablet PO SCH (07:57)
[2018-06-25] MEDS: lactobacillus rhamnosus 10,000 MMU CELLS/CAPSULE PO SCH ×2 (07:57→19:38)
[2018-06-25] MEDS: guaiFENesin ER 600mg tablet PO SCH ×2 (07:58→19:38)
[2018-06-25] MEDS: nicotine 14mg patch - 24hr TD SCH (07:59)
[2018-06-25 08:14] LABS: ANION GAP 12 (8-16); BLOOD UREA NITROGEN 18 MG/DL (7-18); BUN/CREATININE RATIO 5.3 (6.6-38.0); CALCIUM 8.2 MG/DL (8.5-10.1); CHLORIDE 106 MMOL/L (99-107); CREATININE 3.41 MG/DL (0.40-0.90); GLUCOSE 93 MG/DL (70-104); SODIUM 139 MMOL/L (135-145); eGFR 14 ML/MIN
[2018-06-25 08:16] LABS: POTASSIUM 3.3 MMOL/L (3.5-5.1)
[2018-06-25] MEDS: K and/or MAG REPLACEMENT MC SCH ×2 (08:59)
[2018-06-25] MEDS ORDERED: ipratropium/albuterol 3ml nebule NEB PRN (10:35)
[2018-06-25] MEDS: potassium Cl oral solution 20 MEQ/15 ML PO PRN ×4 (10:42→23:57)
[2018-06-25] MEDS: ipratropium/albuterol 3ml nebule NEB SCH ×4 (11:31→23:31)
[2018-06-25] MEDS ORDERED: pantoprazole 40 MG vial IV ONE (12:40)
[2018-06-25] MEDS: diltiazem 30mg tablet PO SCH ×2 (13:12→19:38)
[2018-06-25 14:03] LABS: INR 1.5 INR; PROTHROMBIN TIME 14.9 SECONDS (9.0-12.0)
[2018-06-25 14:10] LABS: ALANINE AMINOTRANSFERASE 36 U/L (12-78); ALBUMIN 2.2 G/DL (3.4-5.0); ALKALINE PHOSPHATASE 218 IU/L (46-116); ANION GAP 6 (8-16); ASPARTATE AMINO TRANSFERASE 92 U/L (10-37); BILIRUBIN,TOTAL 8.1 MG/DL (0.1-1.0); BLOOD UREA NITROGEN 20 MG/DL (7-18); BUN/CREATININE RATIO 5.8 (6.6-38.0); CALCIUM 8.1 MG/DL (8.5-10.1); CHLORIDE 107 MMOL/L (99-107); CREATININE 3.45 MG/DL (0.40-0.90); GLUCOSE 90 MG/DL (70-104); SODIUM 140 MMOL/L (135-145); TOTAL CARBON DIOXIDE 26.9 MMOL/L (24-32); eGFR 14 ML/MIN
[2018-06-25 14:15] LABS: ALBUMIN/GLOBULIN RATIO 0.6 (1.1-1.5); POTASSIUM 3.1 MMOL/L (3.5-5.1); TOTAL PROTEIN 6.2 G/DL (6.4-8.2)
[2018-06-25] MEDS ORDERED: potassium Cl 40MEQ/NS 500ml 500 ML IV PRN ×2 (15:50)
[2018-06-25] MEDS ORDERED: potassium Cl 20 mEq SR tablet PO PRN ×2 (15:50)
[2018-06-25] MEDS ORDERED: potassium Cl oral solution 20 MEQ/15 ML PO PRN (15:53)
[2018-06-25] MEDS ORDERED: furosemide 10 MG/1 ML 10ml inj IV SCH (16:00)
[2018-06-25] MEDS: piperacillin/tazo 4.5gm/100ml 100 ML IV SCH ×2 (16:11→23:44)
[2018-06-25] MEDS: ondansetron/PF 4mg/2ml inj IV PRN (21:35)
[2018-06-26] VITALS (26 sets, daily range): BP systolic 89–140; BP diastolic 53–84
[2018-06-26] MEDS: vancomycin 250MG/10ML UD oral solution 10ML BOTTLE PO SCH ×4 (01:21→19:41)
[2018-06-26] MEDS: diltiazem 30mg tablet PO SCH ×4 (01:21→19:41)
[2018-06-26] MEDS: VANCOMYCIN LEVEL IV SCH (03:00)
[2018-06-26 05:20] LABS: HEMOGLOBIN 7.1 g/dl (12.0-16.0); MEAN CORPUSCULAR HEMOGLOBIN 30.5 PG (27.0-31.0); MEAN CORPUSCULAR HGB CONC 33.9 % (33.0-36.5); MEAN CORPUSCULAR VOLUME 89.9 FL (78-98); MEAN PLATELET VOLUME 10.2 FL (7.4-10.4); PLATELET COUNT 244 X10'3 (140-440); RED BLOOD COUNT 2.32 X10'6 (4.20-5.60); WHITE BLOOD COUNT 16.5 X10'3 (4.5-11.0)
[2018-06-26 05:34] LABS: ALANINE AMINOTRANSFERASE 31 U/L (12-78); ALBUMIN 2.4 G/DL (3.4-5.0); ALKALINE PHOSPHATASE 181 IU/L (46-116); ANION GAP 9 (8-16); ASPARTATE AMINO TRANSFERASE 84 U/L (10-37); BILIRUBIN,TOTAL 7.9 MG/DL (0.1-1.0); BLOOD UREA NITROGEN 20 MG/DL (7-18); BUN/CREATININE RATIO 5.7 (6.6-38.0); CALCIUM 7.6 MG/DL (8.5-10.1); CHLORIDE 107 MMOL/L (99-107); CREATININE 3.52 MG/DL (0.40-0.90); GLUCOSE 96 MG/DL (70-104); SODIUM 142 MMOL/L (135-145); TOTAL CARBON DIOXIDE 25.9 MMOL/L (24-32); eGFR 14 ML/MIN
[2018-06-26 05:35] LABS: ALBUMIN/GLOBULIN RATIO 0.8 (1.1-1.5); POTASSIUM 3.1 MMOL/L (3.5-5.1); TOTAL PROTEIN 5.6 G/DL (6.4-8.2)
[2018-06-26 05:54] LABS: HEMATOCRIT 20.9 % (35.0-45.0)
[2018-06-26 07:04] LABS: MAGNESIUM 1.7 MG/DL (1.5-2.4); PHOSPHORUS 3.8 MG/DL (2.3-4.5)
[2018-06-26] MEDS: ipratropium/albuterol 3ml nebule NEB SCH ×5 (07:15→23:00)
[2018-06-26 07:50] LABS: ANISOCYTOSIS 3+; PLATELET ESTIMATE NORMAL; TOTAL CELLS COUNTED 100
[2018-06-26 07:51] LABS: HYPOCHROMASIA 1+; MICROCYTOSIS 1+; TARGET CELLS 2+
[2018-06-26] MEDS: K and/or MAG REPLACEMENT MC SCH (08:00)
[2018-06-26] MEDS: multivitamins, therapeutics tablet PO SCH (08:20)
[2018-06-26] MEDS: folic acid 1mg tablet PO SCH (08:20)
[2018-06-26] MEDS: thiamine 100mg tablet PO SCH (08:20)
[2018-06-26] MEDS: fluconazole 100mg tablet PO SCH (08:20)
[2018-06-26] MEDS: lactobacillus rhamnosus 10,000 MMU CELLS/CAPSULE PO SCH ×2 (08:20→19:41)
[2018-06-26] MEDS: guaiFENesin ER 600mg tablet PO SCH ×2 (08:20→19:41)
[2018-06-26] MEDS: pantoprazole 40 MG vial IV SCH (08:21)
[2018-06-26] MEDS: albumin (human) 25% 100 ML IV solution IV SCH ×2 (08:22→16:44)
[2018-06-26] MEDS: piperacillin/tazo 4.5gm/100ml 100 ML IV SCH (08:29)
[2018-06-26] MEDS: furosemide 40mg/4ml inj IV SCH ×2 (08:36→16:44)
[2018-06-26] MEDS: nicotine 14mg patch - 24hr TD SCH (08:38)
[2018-06-26] MEDS: potassium Cl oral solution 20 MEQ/15 ML PO PRN ×3 (12:40→23:58)
[2018-06-26] MEDS: NUT.TX.IMPAIRED DIGEST FXN (Ensure Clear) 237 ML PO SCH ×2 (13:34→18:00)
[2018-06-26] MEDS ORDERED: TAZOBACTAM IV SCH (14:00)
[2018-06-26] MEDS ORDERED: PIPERACILLIN IV SCH (14:00)
[2018-06-26] MEDS: piperacillin-tazo 2.25gm/50ml 50 ML IV SCH ×2 (14:41→19:42)
[2018-06-26 17:38] LABS: HEMATOCRIT 27.5 % (35.0-45.0); HEMOGLOBIN 9.3 g/dl (12.0-16.0); MEAN CORPUSCULAR HEMOGLOBIN 30.4 PG (27.0-31.0); MEAN CORPUSCULAR HGB CONC 33.8 % (33.0-36.5); MEAN PLATELET VOLUME 10.6 FL (7.4-10.4); PLATELET COUNT 249 X10'3 (140-440); RED BLOOD COUNT 3.05 X10'6 (4.20-5.60); RED CELL DISTRIBUTION WIDTH 21.9 % (11.5-14.5); WHITE BLOOD COUNT 18.1 X10'3 (4.5-11.0)
[2018-06-27] VITALS (24 sets, daily range): BP systolic 106–143; BP diastolic 63–90
[2018-06-27] MEDS: albumin (human) 25% 100 ML IV solution IV SCH ×2 (00:01→07:39)
[2018-06-27] MEDS: furosemide 40mg/4ml inj IV SCH ×2 (00:01→07:38)
[2018-06-27] MEDS: diltiazem 30mg tablet PO SCH ×4 (02:08→19:09)
[2018-06-27] MEDS: vancomycin 250MG/10ML UD oral solution 10ML BOTTLE PO SCH ×4 (02:08→19:09)
[2018-06-27] MEDS: piperacillin-tazo 2.25gm/50ml 50 ML IV SCH ×4 (02:08→19:09)
[2018-06-27] MEDS: VANCOMYCIN LEVEL IV SCH (03:00)
[2018-06-27 04:21] LABS: HEMATOCRIT 25.8 % (35.0-45.0); HEMOGLOBIN 8.7 g/dl (12.0-16.0); MEAN CORPUSCULAR HEMOGLOBIN 30.6 PG (27.0-31.0); MEAN CORPUSCULAR HGB CONC 33.9 % (33.0-36.5); MEAN CORPUSCULAR VOLUME 90.3 FL (78-98); MEAN PLATELET VOLUME 9.8 FL (7.4-10.4); PLATELET COUNT 233 X10'3 (140-440); RED BLOOD COUNT 2.86 X10'6 (4.20-5.60); RED CELL DISTRIBUTION WIDTH 23.6 % (11.5-14.5); WHITE BLOOD COUNT 18.8 X10'3 (4.5-11.0)
[2018-06-27 04:39] LABS: ALANINE AMINOTRANSFERASE 36 U/L (12-78); ALBUMIN 2.7 G/DL (3.4-5.0); ALKALINE PHOSPHATASE 165 IU/L (46-116); ANION GAP 9 (8-16); ASPARTATE AMINO TRANSFERASE 81 U/L (10-37); BILIRUBIN,TOTAL 8.5 MG/DL (0.1-1.0); BLOOD UREA NITROGEN 20 MG/DL (7-18); BUN/CREATININE RATIO 5.5 (6.6-38.0); CALCIUM 7.8 MG/DL (8.5-10.1); CHLORIDE 106 MMOL/L (99-107); CREATININE 3.66 MG/DL (0.40-0.90); GLUCOSE 98 MG/DL (70-104); SODIUM 144 MMOL/L (135-145); TOTAL CARBON DIOXIDE 29.3 MMOL/L (24-32); VANCOMYCIN,RANDOM 23.7 UG/ML; eGFR 13 ML/MIN
[2018-06-27 04:41] LABS: ALBUMIN/GLOBULIN RATIO 0.8 (1.1-1.5); POTASSIUM 3.1 MMOL/L (3.5-5.1)
[2018-06-27 04:51] LABS: TOTAL CELLS COUNTED 100
[2018-06-27 04:52] LABS: PLATELET ESTIMATE NORMAL
[2018-06-27 04:56] LABS: ANISOCYTOSIS 3+; MICROCYTOSIS 1+; STOMATOCYTES FEW; TARGET CELLS 1+
[2018-06-27] MEDS: potassium Cl oral solution 20 MEQ/15 ML PO PRN ×2 (05:09→15:03)
[2018-06-27 06:46] LABS: MAGNESIUM 1.6 MG/DL (1.5-2.4); PHOSPHORUS 4.1 MG/DL (2.3-4.5)
[2018-06-27] MEDS: thiamine 100mg tablet PO SCH (07:38)
[2018-06-27] MEDS: pantoprazole 40 MG vial IV SCH (07:38)
[2018-06-27] MEDS: lactobacillus rhamnosus 10,000 MMU CELLS/CAPSULE PO SCH ×2 (07:38→19:09)
[2018-06-27] MEDS: folic acid 1mg tablet PO SCH (07:38)
[2018-06-27] MEDS: multivitamins, therapeutics tablet PO SCH (07:40)
[2018-06-27] MEDS: ipratropium/albuterol 3ml nebule NEB SCH ×5 (07:41→23:00)
[2018-06-27] MEDS: nicotine 14mg patch - 24hr TD SCH (07:54)
[2018-06-27] MEDS: NUT.TX.IMPAIRED DIGEST FXN (Ensure Clear) 237 ML PO SCH ×3 (07:54→18:06)
[2018-06-27] MEDS: K and/or MAG REPLACEMENT MC SCH (08:00)
[2018-06-27] MEDS: fluconazole 100mg tablet PO SCH (08:45)
[2018-06-27] MEDS: Ivermectin 3mg tablet PO SCH (08:46)
[2018-06-27] MEDS: guaiFENesin ER 600mg tablet PO SCH ×2 (08:58→19:09)
[2018-06-27 16:04] LABS: HBSAG SCREEN Negative (Negative); HEPATITIS C ANTIBODY 0.1 s/co ratio (0.0-0.9)
[2018-06-27 16:04] LABS: HBSAG SCREEN Negative (Negative); HEPATITIS C ANTIBODY 0.1 s/co ratio (0.0-0.9)
[2018-06-27] MEDS ORDERED: furosemide 40mg/4ml inj IV SCH (20:00)
[2018-06-27] MEDS ORDERED: albumin (human) 25% 100 ML IV solution IV SCH (20:00)
[2018-06-27 22:20] LABS: HEMATOCRIT 25.5 % (35.0-45.0); HEMOGLOBIN 8.5 g/dl (12.0-16.0); MEAN CORPUSCULAR HEMOGLOBIN 30.4 PG (27.0-31.0); MEAN CORPUSCULAR HGB CONC 33.5 % (33.0-36.5); MEAN CORPUSCULAR VOLUME 90.7 FL (78-98); MEAN PLATELET VOLUME 9.7 FL (7.4-10.4); PLATELET COUNT 242 X10'3 (140-440); RED BLOOD COUNT 2.81 X10'6 (4.20-5.60); RED CELL DISTRIBUTION WIDTH 23.6 % (11.5-14.5); WHITE BLOOD COUNT 17.3 X10'3 (4.5-11.0)
[2018-06-28] VITALS (23 sets, daily range): BP systolic 103–146; BP diastolic 68–88
[2018-06-28] MEDS: diltiazem 30mg tablet PO SCH ×4 (02:53→21:17)
[2018-06-28] MEDS: vancomycin 250MG/10ML UD oral solution 10ML BOTTLE PO SCH ×4 (02:53→21:17)
[2018-06-28] MEDS: piperacillin-tazo 2.25gm/50ml 50 ML IV SCH ×4 (02:53→21:17)
[2018-06-28] MEDS: VANCOMYCIN LEVEL IV SCH (03:00)
[2018-06-28 03:48] LABS: HEMATOCRIT 26.4 % (35.0-45.0); HEMOGLOBIN 8.8 g/dl (12.0-16.0); MEAN CORPUSCULAR HEMOGLOBIN 30.4 PG (27.0-31.0); MEAN CORPUSCULAR HGB CONC 33.3 % (33.0-36.5); MEAN CORPUSCULAR VOLUME 91.4 FL (78-98); MEAN PLATELET VOLUME 10.4 FL (7.4-10.4); PLATELET COUNT 231 X10'3 (140-440); RED BLOOD COUNT 2.89 X10'6 (4.20-5.60); RED CELL DISTRIBUTION WIDTH 22.3 % (11.5-14.5); WHITE BLOOD COUNT 18.5 X10'3 (4.5-11.0)
[2018-06-28 04:05] LABS: ALANINE AMINOTRANSFERASE 35 U/L (12-78); ALBUMIN 2.5 G/DL (3.4-5.0); ALKALINE PHOSPHATASE 150 IU/L (46-116); ANION GAP 8 (8-16); ASPARTATE AMINO TRANSFERASE 75 U/L (10-37); BILIRUBIN,TOTAL 7.7 MG/DL (0.1-1.0); BLOOD UREA NITROGEN 22 MG/DL (7-18); BUN/CREATININE RATIO 6.1 (6.6-38.0); CALCIUM 7.5 MG/DL (8.5-10.1); CHLORIDE 102 MMOL/L (99-107); CREATININE 3.61 MG/DL (0.40-0.90); GLUCOSE 99 MG/DL (70-104); SODIUM 143 MMOL/L (135-145); TOTAL CARBON DIOXIDE 33.4 MMOL/L (24-32); VANCOMYCIN,RANDOM 20.7 UG/ML; eGFR 13 ML/MIN
[2018-06-28 04:07] LABS: ALBUMIN/GLOBULIN RATIO 0.8 (1.1-1.5); TOTAL PROTEIN 5.7 G/DL (6.4-8.2)
[2018-06-28 04:10] LABS: POTASSIUM 2.3 MMOL/L (3.5-5.1)
[2018-06-28 04:11] LABS: PLATELET ESTIMATE NORMAL; TOTAL CELLS COUNTED 100
[2018-06-28 04:12] LABS: ANISOCYTOSIS 3+; MICROCYTOSIS 1+; POLYCHROMASIA 1+
[2018-06-28 04:13] LABS: HYPOCHROMASIA 1+; SCHISTOCYTES 1+; SPHEROCYTES 1+; TARGET CELLS 3+
[2018-06-28] MEDS: potassium Cl oral solution 20 MEQ/15 ML PO PRN ×3 (04:17→14:51)
[2018-06-28] MEDS: ipratropium/albuterol 3ml nebule NEB SCH ×5 (07:35→23:00)
[2018-06-28] MEDS: K and/or MAG REPLACEMENT MC SCH (08:00)
[2018-06-28] MEDS: pantoprazole 40 MG vial IV SCH (08:09)
[2018-06-28] MEDS: folic acid 1mg tablet PO SCH (08:10)
[2018-06-28] MEDS: guaiFENesin ER 600mg tablet PO SCH ×2 (08:10→21:17)
[2018-06-28] MEDS: multivitamins, therapeutics tablet PO SCH (08:10)
[2018-06-28] MEDS: thiamine 100mg tablet PO SCH (08:10)
[2018-06-28] MEDS: nicotine 14mg patch - 24hr TD SCH (08:10)
[2018-06-28] MEDS: fluconazole 100mg tablet PO SCH (08:10)
[2018-06-28] MEDS: NUT.TX.IMPAIRED DIGEST FXN (Ensure Clear) 237 ML PO SCH (08:11)
[2018-06-28] MEDS: lactobacillus rhamnosus 10,000 MMU CELLS/CAPSULE PO SCH ×2 (08:11→21:17)
[2018-06-28 09:04] LABS: MAGNESIUM 1.4 MG/DL (1.5-2.4); PHOSPHORUS 3.9 MG/DL (2.3-4.5)
[2018-06-28] MEDS ORDERED: magnesium Cl slow-release 64mg tablet PO PRN (17:20)
[2018-06-28] MEDS: Protein Smoothie (high protein) 240ml (8oz) cup PO SCH (18:02)
[2018-06-29] VITALS (24 sets, daily range): BP systolic 113–145; BP diastolic 66–90
[2018-06-29] MEDS: piperacillin-tazo 2.25gm/50ml 50 ML IV SCH ×4 (02:58→19:38)
[2018-06-29] MEDS: vancomycin 250MG/10ML UD oral solution 10ML BOTTLE PO SCH ×4 (02:58→19:39)
[2018-06-29] MEDS: diltiazem 30mg tablet PO SCH ×4 (02:58→19:39)
[2018-06-29] MEDS: VANCOMYCIN LEVEL IV SCH (03:00)
[2018-06-29 05:49] LABS: HEMATOCRIT 27.6 % (35.0-45.0); HEMOGLOBIN 9.3 g/dl (12.0-16.0); MEAN CORPUSCULAR HEMOGLOBIN 30.9 PG (27.0-31.0); MEAN CORPUSCULAR HGB CONC 33.7 % (33.0-36.5); MEAN CORPUSCULAR VOLUME 91.5 FL (78-98); MEAN PLATELET VOLUME 10.5 FL (7.4-10.4); PLATELET COUNT 252 X10'3 (140-440); RED BLOOD COUNT 3.02 X10'6 (4.20-5.60); RED CELL DISTRIBUTION WIDTH 23.7 % (11.5-14.5)
[2018-06-29 06:26] LABS: ALANINE AMINOTRANSFERASE 42 U/L (12-78); ALBUMIN 2.2 G/DL (3.4-5.0); ALKALINE PHOSPHATASE 204 IU/L (46-116); ANION GAP 8 (8-16); ASPARTATE AMINO TRANSFERASE 96 U/L (10-37); BILIRUBIN,TOTAL 7.8 MG/DL (0.1-1.0); BLOOD UREA NITROGEN 23 MG/DL (7-18); BUN/CREATININE RATIO 6.1 (6.6-38.0); CHLORIDE 104 MMOL/L (99-107); CREATININE 3.77 MG/DL (0.40-0.90); GLUCOSE 81 MG/DL (70-104); SODIUM 142 MMOL/L (135-145); TOTAL CARBON DIOXIDE 29.8 MMOL/L (24-32); VANCOMYCIN,RANDOM 18.7 UG/ML; eGFR 13 ML/MIN
[2018-06-29 06:30] LABS: ALBUMIN/GLOBULIN RATIO 0.6 (1.1-1.5); POTASSIUM 4.1 MMOL/L (3.5-5.1); TOTAL PROTEIN 6.1 G/DL (6.4-8.2)
[2018-06-29 07:09] LABS: ANISOCYTOSIS 3+; PLATELET ESTIMATE NORMAL; TOTAL CELLS COUNTED 100
[2018-06-29 07:11] LABS: LARGE PLATELETS FEW; TARGET CELLS 1+
[2018-06-29] MEDS: ipratropium/albuterol 3ml nebule NEB SCH ×5 (07:12→23:00)
[2018-06-29] MEDS: lactobacillus rhamnosus 10,000 MMU CELLS/CAPSULE PO SCH ×2 (07:51→19:39)
[2018-06-29] MEDS: folic acid 1mg tablet PO SCH (07:51)
[2018-06-29] MEDS: guaiFENesin ER 600mg tablet PO SCH ×2 (07:51→19:38)
[2018-06-29] MEDS: pantoprazole 40 MG vial IV SCH (07:51)
[2018-06-29] MEDS: fluconazole 100mg tablet PO SCH (07:51)
[2018-06-29] MEDS: thiamine 100mg tablet PO SCH (07:51)
[2018-06-29] MEDS: multivitamins, therapeutics tablet PO SCH (07:51)
[2018-06-29] MEDS: nicotine 14mg patch - 24hr TD SCH (07:51)
[2018-06-29] MEDS: Protein Smoothie (high protein) 240ml (8oz) cup PO SCH ×3 (08:00→19:02)
[2018-06-29] MEDS: K and/or MAG REPLACEMENT MC SCH (08:00)
[2018-06-30] VITALS (17 sets, daily range): BP systolic 102–152; BP diastolic 72–88
[2018-06-30] MEDS: vancomycin 250MG/10ML UD oral solution 10ML BOTTLE PO SCH ×4 (02:41→20:12)
[2018-06-30] MEDS: diltiazem 30mg tablet PO SCH ×4 (02:41→20:12)
[2018-06-30] MEDS: piperacillin-tazo 2.25gm/50ml 50 ML IV SCH ×4 (02:42→20:12)
[2018-06-30] MEDS: VANCOMYCIN LEVEL IV SCH (03:00)
[2018-06-30 05:55] LABS: ALANINE AMINOTRANSFERASE 43 U/L (12-78); ALKALINE PHOSPHATASE 189 IU/L (46-116); ANION GAP 11 (8-16); ASPARTATE AMINO TRANSFERASE 96 U/L (10-37); BILIRUBIN,TOTAL 7.5 MG/DL (0.1-1.0); BLOOD UREA NITROGEN 25 MG/DL (7-18); BUN/CREATININE RATIO 6.7 (6.6-38.0); CALCIUM 7.7 MG/DL (8.5-10.1); CHLORIDE 99 MMOL/L (99-107); CREATININE 3.71 MG/DL (0.40-0.90); GLUCOSE 93 MG/DL (70-104); SODIUM 140 MMOL/L (135-145); TOTAL CARBON DIOXIDE 30.2 MMOL/L (24-32); VANCOMYCIN,RANDOM 16.1 UG/ML; eGFR 13 ML/MIN
[2018-06-30 06:08] LABS: ALBUMIN/GLOBULIN RATIO 0.5 (1.1-1.5)
[2018-06-30 06:36] LABS: POTASSIUM 2.8 MMOL/L (3.5-5.1)
[2018-06-30] MEDS: K and/or MAG REPLACEMENT MC SCH (08:00)
[2018-06-30] MEDS: ipratropium/albuterol 3ml nebule NEB SCH ×5 (08:47→23:39)
[2018-06-30] MEDS: fluconazole 100mg tablet PO SCH (08:55)
[2018-06-30] MEDS: multivitamins, therapeutics tablet PO SCH (08:55)
[2018-06-30] MEDS: pantoprazole 40 MG vial IV SCH (08:55)
[2018-06-30] MEDS: thiamine 100mg tablet PO SCH (08:55)
[2018-06-30] MEDS: lactobacillus rhamnosus 10,000 MMU CELLS/CAPSULE PO SCH ×2 (08:55→20:12)
[2018-06-30] MEDS: folic acid 1mg tablet PO SCH (08:55)
[2018-06-30] MEDS: nicotine 14mg patch - 24hr TD SCH (08:55)
[2018-06-30] MEDS: guaiFENesin ER 600mg tablet PO SCH ×2 (08:55→20:12)
[2018-06-30] MEDS: Protein Smoothie (high protein) 240ml (8oz) cup PO SCH ×3 (08:56→18:02)
[2018-06-30] MEDS: potassium Cl oral solution 20 MEQ/15 ML PO PRN ×2 (09:05→11:37)
[2018-06-30] MEDS ORDERED: magnesium 4gm in 100ml NS 100 ML IV PRN (14:55)
[2018-06-30] MEDS ORDERED: potassium Cl 40MEQ/NS 500ml 500 ML IV PRN ×2 (14:55)
[2018-06-30] MEDS ORDERED: magnesium Cl slow-release 64mg tablet PO PRN (14:55)
[2018-06-30] MEDS ORDERED: potassium Cl oral solution 20 MEQ/15 ML PO PRN (14:55)
[2018-07-01] MEDS: diltiazem 30mg tablet PO SCH ×4 (02:23→20:38)
[2018-07-01] MEDS: vancomycin 250MG/10ML UD oral solution 10ML BOTTLE PO SCH ×4 (02:23→20:37)
[2018-07-01] MEDS: piperacillin-tazo 2.25gm/50ml 50 ML IV SCH ×2 (02:24→08:26)
[2018-07-01] MEDS: VANCOMYCIN LEVEL IV SCH (03:00)
[2018-07-01 03:21] LABS: HEMATOCRIT 26.1 % (35.0-45.0); HEMOGLOBIN 7.6 g/dl (12.0-16.0); MEAN CORPUSCULAR HEMOGLOBIN 26.3 PG (27.0-31.0); MEAN CORPUSCULAR VOLUME 90.7 FL (78-98); MEAN PLATELET VOLUME 10.5 FL (7.4-10.4); PLATELET COUNT 250 X10'3 (140-440); RED BLOOD COUNT 2.87 X10'6 (4.20-5.60); RED CELL DISTRIBUTION WIDTH 23.2 % (11.5-14.5); WHITE BLOOD COUNT 19.5 X10'3 (4.5-11.0)
[2018-07-01 03:37] LABS: ALANINE AMINOTRANSFERASE 46 U/L (12-78); ALBUMIN 1.8 G/DL (3.4-5.0); ALKALINE PHOSPHATASE 208 IU/L (46-116); ANION GAP 12 (8-16); ASPARTATE AMINO TRANSFERASE 108 U/L (10-37); BILIRUBIN,TOTAL 7.2 MG/DL (0.1-1.0); BLOOD UREA NITROGEN 27 MG/DL (7-18); BUN/CREATININE RATIO 7.5 (6.6-38.0); CALCIUM 7.7 MG/DL (8.5-10.1); CHLORIDE 96 MMOL/L (99-107); GLUCOSE 103 MG/DL (70-104); POTASSIUM 3.4 MMOL/L (3.5-5.1); SODIUM 136 MMOL/L (135-145); TOTAL CARBON DIOXIDE 28.4 MMOL/L (24-32); VANCOMYCIN,RANDOM 13.3 UG/ML; eGFR 13 ML/MIN
[2018-07-01 04:02] LABS: ALBUMIN/GLOBULIN RATIO 0.5 (1.1-1.5); TOTAL PROTEIN 5.8 G/DL (6.4-8.2)
[2018-07-01 04:31] LABS: ANISOCYTOSIS 3+; PLATELET ESTIMATE NORMAL; TARGET CELLS 2+; TOTAL CELLS COUNTED 100
[2018-07-01] MEDS: potassium Cl oral solution 20 MEQ/15 ML PO PRN ×3 (04:41→15:30)
[2018-07-01 06:00] VITALS: BP 140/82
[2018-07-01] MEDS ORDERED: vancomycin inj 500 MG in normal saline 100ml IV soln 100 ML IV PRN (06:40)
[2018-07-01] MEDS ORDERED: vancomycin inj 500 MG in normal saline 100ml IV soln 100 ML IV ONE (06:40)
[2018-07-01] MEDS: ipratropium/albuterol 3ml nebule NEB SCH ×5 (07:00→23:00)
[2018-07-01] MEDS: K and/or MAG REPLACEMENT MC SCH (08:00)
[2018-07-01] MEDS: thiamine 100mg tablet PO SCH (08:24)
[2018-07-01] MEDS: multivitamins, therapeutics tablet PO SCH (08:24)
[2018-07-01] MEDS: guaiFENesin ER 600mg tablet PO SCH (08:25)
[2018-07-01] MEDS: fluconazole 100mg tablet PO SCH (08:25)
[2018-07-01] MEDS: lactobacillus rhamnosus 10,000 MMU CELLS/CAPSULE PO SCH ×2 (08:25→20:37)
[2018-07-01] MEDS: pantoprazole 40 MG vial IV SCH (08:25)
[2018-07-01] MEDS: folic acid 1mg tablet PO SCH (08:25)
[2018-07-01] MEDS: nicotine 14mg patch - 24hr TD SCH (08:26)
[2018-07-01] MEDS: Protein Smoothie (high protein) 240ml (8oz) cup PO SCH ×3 (08:27→18:00)
[2018-07-01 11:00] VITALS: BP 137/83
[2018-07-01 15:00] VITALS: BP 106/78
[2018-07-01 19:00] VITALS: BP 117/77
[2018-07-01 20:15] LABS: ALBUMIN 1.8 G/DL (3.4-5.0); BLOOD UREA NITROGEN 29 MG/DL (7-18); BUN/CREATININE RATIO 8.4 (6.6-38.0); CALCIUM 7.9 MG/DL (8.5-10.1); CHLORIDE 98 MMOL/L (99-107); CREATININE 3.46 MG/DL (0.40-0.90); GLUCOSE 114 MG/DL (70-104); TOTAL CARBON DIOXIDE 30.3 MMOL/L (24-32); eGFR 14 ML/MIN
[2018-07-01 20:29] LABS: POTASSIUM 3.6 MMOL/L (3.5-5.1)
[2018-07-01 20:30] LABS: ANION GAP 8 (8-16); SODIUM 136 MMOL/L (135-145)
[2018-07-01] MEDS: heparin, porcine 5000 units/ml vial SQ SCH (20:38)
[2018-07-01 23:00] VITALS: BP 123/83
[2018-07-02] MEDS: vancomycin 250MG/10ML UD oral solution 10ML BOTTLE PO SCH ×4 (02:07→19:47)
[2018-07-02] MEDS: diltiazem 30mg tablet PO SCH ×4 (02:07→19:47)
[2018-07-02 03:00] VITALS: BP 134/80
[2018-07-02] MEDS: VANCOMYCIN LEVEL IV SCH (03:00)
[2018-07-02 06:00] VITALS: BP 133/84
[2018-07-02] MEDS: ipratropium/albuterol 3ml nebule NEB SCH ×5 (07:30→23:00)
[2018-07-02] MEDS: K and/or MAG REPLACEMENT MC SCH (08:00)
[2018-07-02] MEDS: multivitamins, therapeutics tablet PO SCH (08:06)
[2018-07-02] MEDS: lactobacillus rhamnosus 10,000 MMU CELLS/CAPSULE PO SCH ×2 (08:06→19:47)
[2018-07-02] MEDS: fluconazole 100mg tablet PO SCH (08:06)
[2018-07-02] MEDS: pantoprazole 40 MG vial IV SCH (08:06)
[2018-07-02] MEDS: thiamine 100mg tablet PO SCH (08:06)
[2018-07-02] MEDS: nicotine 14mg patch - 24hr TD SCH (08:06)
[2018-07-02] MEDS: folic acid 1mg tablet PO SCH (08:06)
[2018-07-02] MEDS: heparin, porcine 5000 units/ml vial SQ SCH ×2 (08:07→19:47)
[2018-07-02] MEDS: potassium Cl oral solution 20 MEQ/15 ML PO PRN ×2 (08:07→13:00)
[2018-07-02] MEDS: Protein Smoothie (high protein) 240ml (8oz) cup PO SCH ×3 (08:16→18:00)
[2018-07-02 11:00] VITALS: BP 134/82
[2018-07-02 15:00] VITALS: BP 124/80
[2018-07-02 19:00] VITALS: BP 132/83
[2018-07-02 23:00] VITALS: BP 134/87
[2018-07-03] MEDS: VANCOMYCIN LEVEL IV SCH (02:19)
[2018-07-03] MEDS: vancomycin 250MG/10ML UD oral solution 10ML BOTTLE PO SCH ×3 (02:22→14:09)
[2018-07-03] MEDS: diltiazem 30mg tablet PO SCH ×4 (02:22→19:54)
[2018-07-03 03:00] VITALS: BP 142/91
[2018-07-03 06:00] VITALS: BP 139/83
[2018-07-03 06:02] LABS: VANCOMYCIN,RANDOM 14.3 UG/ML
[2018-07-03 07:28] LABS: HEMATOCRIT 26.9 % (35.0-45.0); HEMOGLOBIN 9.2 g/dl (12.0-16.0); MEAN CORPUSCULAR HGB CONC 34.3 % (33.0-36.5); MEAN CORPUSCULAR VOLUME 90.3 FL (78-98); MEAN PLATELET VOLUME 10.9 FL (7.4-10.4); PLATELET COUNT 271 X10'3 (140-440); RED BLOOD COUNT 2.98 X10'6 (4.20-5.60); RED CELL DISTRIBUTION WIDTH 23.4 % (11.5-14.5); WHITE BLOOD COUNT 22.8 X10'3 (4.5-11.0)
[2018-07-03 07:44] LABS: ALANINE AMINOTRANSFERASE 47 U/L (12-78); ALBUMIN 1.9 G/DL (3.4-5.0); ALBUMIN/GLOBULIN RATIO 0.4 (1.1-1.5); ALKALINE PHOSPHATASE 261 IU/L (46-116); ANION GAP 11 (8-16); ASPARTATE AMINO TRANSFERASE 126 U/L (10-37); BILIRUBIN,TOTAL 8.4 MG/DL (0.1-1.0); BLOOD UREA NITROGEN 29 MG/DL (7-18); BUN/CREATININE RATIO 8.7 (6.6-38.0); CALCIUM 7.9 MG/DL (8.5-10.1); CHLORIDE 94 MMOL/L (99-107); CREATININE 3.32 MG/DL (0.40-0.90); GLUCOSE 78 MG/DL (70-104); POTASSIUM 3.1 MMOL/L (3.5-5.1); SODIUM 135 MMOL/L (135-145); TOTAL CARBON DIOXIDE 29.6 MMOL/L (24-32); TOTAL PROTEIN 6.2 G/DL (6.4-8.2); eGFR 15 ML/MIN
[2018-07-03] MEDS: multivitamins, therapeutics tablet PO SCH (07:48)
[2018-07-03] MEDS: lactobacillus rhamnosus 10,000 MMU CELLS/CAPSULE PO SCH ×2 (07:48→19:54)
[2018-07-03] MEDS: pantoprazole 40 MG vial IV SCH (07:48)
[2018-07-03] MEDS: thiamine 100mg tablet PO SCH (07:48)
[2018-07-03] MEDS: folic acid 1mg tablet PO SCH (07:48)
[2018-07-03] MEDS: heparin, porcine 5000 units/ml vial SQ SCH ×2 (07:48→19:54)
[2018-07-03] MEDS: fluconazole 100mg tablet PO SCH (07:48)
[2018-07-03] MEDS: nicotine 14mg patch - 24hr TD SCH (07:49)
[2018-07-03] MEDS ORDERED: vancomycin inj 500 MG in normal saline 100ml IV soln 100 ML IV ONE (08:00)
[2018-07-03] MEDS: Protein Smoothie (high protein) 240ml (8oz) cup PO SCH ×3 (08:00→18:00)
[2018-07-03] MEDS: K and/or MAG REPLACEMENT MC SCH (08:00)
[2018-07-03] MEDS: ipratropium/albuterol 3ml nebule NEB SCH ×5 (08:01→23:00)
[2018-07-03] MEDS: potassium Cl oral solution 20 MEQ/15 ML PO PRN ×2 (08:05→13:10)
[2018-07-03 08:31] LABS: ANISOCYTOSIS 3+; PLATELET ESTIMATE NORMAL; TOTAL CELLS COUNTED 100
[2018-07-03 08:32] LABS: TARGET CELLS 2+
[2018-07-03 11:00] VITALS: BP 138/86
[2018-07-03 15:00] VITALS: BP 147/87
[2018-07-03 19:00] VITALS: BP 144/87
[2018-07-03 23:00] VITALS: BP 135/80
[2018-07-04] MEDS: diltiazem 30mg tablet PO SCH ×4 (01:33→20:25)
[2018-07-04 03:00] VITALS: BP_SYST 125; BP_SYST 141; BP_DIAS 78; BP_DIAS 87
[2018-07-04] MEDS: VANCOMYCIN LEVEL IV SCH (03:38)
[2018-07-04 03:40] LABS: HEMATOCRIT 25.3 % (35.0-45.0); HEMOGLOBIN 8.6 g/dl (12.0-16.0); MEAN CORPUSCULAR HEMOGLOBIN 30.4 PG (27.0-31.0); MEAN CORPUSCULAR HGB CONC 33.7 % (33.0-36.5); MEAN PLATELET VOLUME 10.4 FL (7.4-10.4); PLATELET COUNT 287 X10'3 (140-440); RED BLOOD COUNT 2.82 X10'6 (4.20-5.60); RED CELL DISTRIBUTION WIDTH 22.8 % (11.5-14.5)
[2018-07-04 03:43] LABS: WHITE BLOOD COUNT 25.7 X10'3 (4.5-11.0)
[2018-07-04 03:46] LABS: ALBUMIN 1.8 G/DL (3.4-5.0); ANION GAP 10 (8-16); BLOOD UREA NITROGEN 31 MG/DL (7-18); CHLORIDE 94 MMOL/L (99-107); CREATININE 3.11 MG/DL (0.40-0.90); GLUCOSE 88 MG/DL (70-104); SODIUM 134 MMOL/L (135-145); eGFR 16 ML/MIN
[2018-07-04 04:05] LABS: ANISOCYTOSIS 3+; PLATELET ESTIMATE NORMAL; POLYCHROMASIA FEW; TARGET CELLS 2+; TOTAL CELLS COUNTED 100
[2018-07-04] MEDS ORDERED: potassium Cl 40MEQ/NS 500ml 500 ML IV PRN ×2 (04:15)
[2018-07-04] MEDS: potassium Cl 20 mEq SR tablet PO PRN ×3 (04:23→15:10)
[2018-07-04 05:00] LABS: MAGNESIUM 1.5 MG/DL (1.5-2.4); VANCOMYCIN,RANDOM 15.7 UG/ML
[2018-07-04 06:00] VITALS: BP 146/88
[2018-07-04] MEDS: ipratropium/albuterol 3ml nebule NEB SCH ×5 (07:52→23:00)
[2018-07-04] MEDS: K and/or MAG REPLACEMENT MC SCH (08:00)
[2018-07-04] MEDS: thiamine 100mg tablet PO SCH (08:23)
[2018-07-04] MEDS: heparin, porcine 5000 units/ml vial SQ SCH ×2 (08:23→20:25)
[2018-07-04] MEDS: folic acid 1mg tablet PO SCH (08:23)
[2018-07-04] MEDS: lactobacillus rhamnosus 10,000 MMU CELLS/CAPSULE PO SCH ×2 (08:23→20:25)
[2018-07-04] MEDS: multivitamins, therapeutics tablet PO SCH (08:23)
[2018-07-04] MEDS: nicotine 14mg patch - 24hr TD SCH (08:24)
[2018-07-04] MEDS: Protein Smoothie (high protein) 240ml (8oz) cup PO SCH ×3 (08:24→18:00)
[2018-07-04] MEDS: pantoprazole 40 MG vial IV SCH (08:24)
[2018-07-04] MEDS: ondansetron/PF 4mg/2ml inj IV PRN ×2 (11:00→20:24)
[2018-07-04 15:00] VITALS: BP 154/90
[2018-07-04 19:00] VITALS: BP 155/89
[2018-07-04 23:00] VITALS: BP 133/89
[2018-07-05] MEDS: diltiazem 30mg tablet PO SCH ×4 (02:35→19:50)
[2018-07-05 03:00] VITALS: BP 135/55
[2018-07-05 05:50] LABS: HEMATOCRIT 27.5 % (35.0-45.0); HEMOGLOBIN 9.4 g/dl (12.0-16.0); MEAN CORPUSCULAR HEMOGLOBIN 31.2 PG (27.0-31.0); MEAN CORPUSCULAR HGB CONC 34.3 % (33.0-36.5); MEAN CORPUSCULAR VOLUME 91.2 FL (78-98); MEAN PLATELET VOLUME 10.4 FL (7.4-10.4); PLATELET COUNT 374 X10'3 (140-440); RED BLOOD COUNT 3.01 X10'6 (4.20-5.60); RED CELL DISTRIBUTION WIDTH 22.5 % (11.5-14.5)
[2018-07-05 06:22] LABS: ALANINE AMINOTRANSFERASE 65 U/L (12-78); ALKALINE PHOSPHATASE 340 IU/L (46-116); ANION GAP 13 (8-16); BLOOD UREA NITROGEN 29 MG/DL (7-18); BUN/CREATININE RATIO 9.9 (6.6-38.0); CALCIUM 8.5 MG/DL (8.5-10.1); CHLORIDE 97 MMOL/L (99-107); CREATININE 2.92 MG/DL (0.40-0.90); GLUCOSE 72 MG/DL (70-104); MAGNESIUM 1.8 MG/DL (1.5-2.4); SODIUM 137 MMOL/L (135-145); TOTAL CARBON DIOXIDE 27.2 MMOL/L (24-32); eGFR 17 ML/MIN
[2018-07-05 06:24] LABS: ALBUMIN/GLOBULIN RATIO 0.4 (1.1-1.5); ASPARTATE AMINO TRANSFERASE 152 U/L (10-37); PHOSPHORUS 3.3 MG/DL (2.3-4.5); POTASSIUM 3.9 MMOL/L (3.5-5.1); TOTAL PROTEIN 6.8 G/DL (6.4-8.2)
[2018-07-05 06:42] LABS: WHITE BLOOD COUNT 29.3 X10'3 (4.5-11.0)
[2018-07-05 06:46] LABS: ANISOCYTOSIS 3+; PLATELET ESTIMATE NORMAL; TARGET CELLS 2+; TOTAL CELLS COUNTED 100
[2018-07-05 07:00] VITALS: BP 142/87
[2018-07-05] MEDS: ipratropium/albuterol 3ml nebule NEB SCH ×5 (07:00→23:00)
[2018-07-05] MEDS: multivitamins, therapeutics tablet PO SCH (08:00)
[2018-07-05] MEDS: thiamine 100mg tablet PO SCH (08:00)
[2018-07-05] MEDS: lactobacillus rhamnosus 10,000 MMU CELLS/CAPSULE PO SCH ×2 (08:00→19:50)
[2018-07-05] MEDS: folic acid 1mg tablet PO SCH (08:00)
[2018-07-05] MEDS: K and/or MAG REPLACEMENT MC SCH (08:00)
[2018-07-05] MEDS: heparin, porcine 5000 units/ml vial SQ SCH ×2 (08:01→19:51)
[2018-07-05] MEDS: Protein Smoothie (high protein) 240ml (8oz) cup PO SCH ×3 (08:01→18:45)
[2018-07-05] MEDS: pantoprazole 40 MG vial IV SCH (08:01)
[2018-07-05] MEDS: nicotine 14mg patch - 24hr TD SCH (08:02)
[2018-07-05 11:00] VITALS: BP 141/87
[2018-07-05 15:00] VITALS: BP 135/84
[2018-07-05 18:00] VITALS: BP 137/86
[2018-07-05] MEDS: vancomycin 125mg/5ml ORAL solution 5ml UD bottle PO SCH (19:52)
[2018-07-05 22:00] VITALS: BP 126/80
[2018-07-06] VITALS (7 sets, daily range): BP systolic 133–144; BP diastolic 80–87
[2018-07-06] MEDS: vancomycin 125mg/5ml ORAL solution 5ml UD bottle PO SCH ×4 (01:44→20:04)
[2018-07-06] MEDS: diltiazem 30mg tablet PO SCH ×4 (01:44→20:04)
[2018-07-06] MEDS: diphenhydrAMINE 50 mg/ml inj IV PRN ×3 (01:45→19:14)
[2018-07-06 05:00] LABS: MEAN CORPUSCULAR HEMOGLOBIN 31.6 PG (27.0-31.0); MEAN CORPUSCULAR HGB CONC 34.4 % (33.0-36.5); MEAN CORPUSCULAR VOLUME 91.6 FL (78-98); MEAN PLATELET VOLUME 10.3 FL (7.4-10.4); PLATELET COUNT 406 X10'3 (140-440); RED BLOOD COUNT 2.84 X10'6 (4.20-5.60); RED CELL DISTRIBUTION WIDTH 22.4 % (11.5-14.5)
[2018-07-06 05:14] LABS: WHITE BLOOD COUNT 27.1 X10'3 (4.5-11.0)
[2018-07-06 05:16] LABS: INR 1.3 INR; PROTHROMBIN TIME 13.7 SECONDS (9.0-12.0)
[2018-07-06 05:35] LABS: ALANINE AMINOTRANSFERASE 61 U/L (12-78); ALBUMIN 1.9 G/DL (3.4-5.0); ALKALINE PHOSPHATASE 307 IU/L (46-116); ANION GAP 12 (8-16); ASPARTATE AMINO TRANSFERASE 135 U/L (10-37); BILIRUBIN,TOTAL 12.1 MG/DL (0.1-1.0); BLOOD UREA NITROGEN 27 MG/DL (7-18); BUN/CREATININE RATIO 9.3 (6.6-38.0); CALCIUM 8.4 MG/DL (8.5-10.1); CHLORIDE 96 MMOL/L (99-107); GLUCOSE 85 MG/DL (70-104); MAGNESIUM 1.8 MG/DL (1.5-2.4); SODIUM 136 MMOL/L (135-145); TOTAL CARBON DIOXIDE 28.1 MMOL/L (24-32); TOTAL CELLS COUNTED 100; eGFR 17 ML/MIN
[2018-07-06 05:36] LABS: ANISOCYTOSIS 3+; PLATELET ESTIMATE NORMAL; TARGET CELLS 2+
[2018-07-06 05:39] LABS: ALBUMIN/GLOBULIN RATIO 0.4 (1.1-1.5); PHOSPHORUS 3.9 MG/DL (2.3-4.5); TOTAL PROTEIN 6.8 G/DL (6.4-8.2)
[2018-07-06 06:41] LABS: HIV ANTIBODY 1&2 RAPID NON-REACTIVE (Neg)
[2018-07-06] MEDS: ipratropium/albuterol 3ml nebule NEB SCH (07:00)
[2018-07-06] MEDS: multivitamins, therapeutics tablet PO SCH (08:00)
[2018-07-06] MEDS: potassium Cl 20 mEq SR tablet PO PRN ×3 (08:00→20:05)
[2018-07-06] MEDS: Protein Smoothie (high protein) 240ml (8oz) cup PO SCH ×3 (08:00→18:20)
[2018-07-06] MEDS: nicotine 14mg patch - 24hr TD SCH (08:00)
[2018-07-06] MEDS: folic acid 1mg tablet PO SCH (08:00)
[2018-07-06] MEDS: K and/or MAG REPLACEMENT MC SCH (08:00)
[2018-07-06] MEDS: heparin, porcine 5000 units/ml vial SQ SCH ×2 (08:01→20:05)
[2018-07-06] MEDS: lactobacillus rhamnosus 10,000 MMU CELLS/CAPSULE PO SCH ×2 (08:01→20:05)
[2018-07-06] MEDS: pantoprazole 40 MG vial IV SCH (08:04)
[2018-07-06] MEDS: thiamine 100mg tablet PO SCH (08:10)
[2018-07-06] MEDS ORDERED: ipratropium/albuterol 3ml nebule NEB PRN (08:20)
[2018-07-07] MEDS: vancomycin 125mg/5ml ORAL solution 5ml UD bottle PO SCH ×4 (01:55→19:57)
[2018-07-07] MEDS: diltiazem 30mg tablet PO SCH ×4 (01:55→19:57)
[2018-07-07 02:00] VITALS: BP 134/84
[2018-07-07 05:44] LABS: HEMATOCRIT 23.9 % (35.0-45.0); HEMOGLOBIN 8.2 g/dl (12.0-16.0); MEAN CORPUSCULAR HEMOGLOBIN 31.5 PG (27.0-31.0); MEAN CORPUSCULAR HGB CONC 34.2 % (33.0-36.5); MEAN CORPUSCULAR VOLUME 92.1 FL (78-98); MEAN PLATELET VOLUME 11.3 FL (7.4-10.4); PLATELET COUNT 333 X10'3 (140-440)
[2018-07-07 06:14] LABS: WHITE BLOOD COUNT 25.3 X10'3 (4.5-11.0)
[2018-07-07 06:15] LABS: ALANINE AMINOTRANSFERASE 61 U/L (12-78); ALBUMIN 1.9 G/DL (3.4-5.0); ALKALINE PHOSPHATASE 272 IU/L (46-116); ANION GAP 10 (8-16); BILIRUBIN,TOTAL 11.8 MG/DL (0.1-1.0); BLOOD UREA NITROGEN 25 MG/DL (7-18); BUN/CREATININE RATIO 9.8 (6.6-38.0); CALCIUM 8.4 MG/DL (8.5-10.1); CHLORIDE 99 MMOL/L (99-107); CREATININE 2.56 MG/DL (0.40-0.90); GLUCOSE 75 MG/DL (70-104); MAGNESIUM 1.8 MG/DL (1.5-2.4); SODIUM 136 MMOL/L (135-145); TOTAL CARBON DIOXIDE 27.3 MMOL/L (24-32); eGFR 20 ML/MIN
[2018-07-07 06:34] LABS: ALBUMIN/GLOBULIN RATIO 0.4 (1.1-1.5); ASPARTATE AMINO TRANSFERASE 144 U/L (10-37); POTASSIUM 3.6 MMOL/L (3.5-5.1); TOTAL PROTEIN 6.3 G/DL (6.4-8.2)
[2018-07-07 07:00] VITALS: BP 138/86
[2018-07-07 07:23] LABS: TOTAL CELLS COUNTED 100
[2018-07-07 07:24] LABS: ANISOCYTOSIS 3+; PLATELET ESTIMATE NORMAL; TARGET CELLS 2+
[2018-07-07] MEDS: K and/or MAG REPLACEMENT MC SCH (08:00)
[2018-07-07] MEDS: nicotine 14mg patch - 24hr TD SCH (08:00)
[2018-07-07] MEDS: Protein Smoothie (high protein) 240ml (8oz) cup PO SCH ×3 (08:00→18:19)
[2018-07-07] MEDS: folic acid 1mg tablet PO SCH (08:28)
[2018-07-07] MEDS: thiamine 100mg tablet PO SCH (08:28)
[2018-07-07] MEDS: multivitamins, therapeutics tablet PO SCH (08:28)
[2018-07-07] MEDS: pantoprazole 40 MG vial IV SCH (08:29)
[2018-07-07] MEDS: heparin, porcine 5000 units/ml vial SQ SCH ×2 (08:31→19:58)
[2018-07-07] MEDS: lactobacillus rhamnosus 10,000 MMU CELLS/CAPSULE PO SCH ×2 (08:32→19:57)
[2018-07-07] MEDS: diphenhydrAMINE 50 mg/ml inj IV PRN (08:33)
[2018-07-07 11:00] VITALS: BP 153/90
[2018-07-07 15:00] VITALS: BP 127/78
[2018-07-07 15:19] LABS: ANTINUCLEAR ANTIBODIES Negative (Negative)
[2018-07-07 19:00] VITALS: BP 143/85
[2018-07-07 19:09] LABS: A/G RATIO 0.7 (0.7-1.7); ALBUMIN 2.6 g/dL (2.9-4.4); GAMMA GLOBULIN 1.8 g/dL (0.4-1.8); GLOBULIN, TOTAL 3.7 g/dL (2.2-3.9); M-SPIKE Not Observed g/dL (Not Observed); PROTEIN, TOTAL, SERUM 6.3 g/dL (6.0-8.5)
[2018-07-07 23:00] VITALS: BP 145/84
[2018-07-08] MEDS: vancomycin 125mg/5ml ORAL solution 5ml UD bottle PO SCH ×4 (01:03→20:46)
[2018-07-08] MEDS: diltiazem 30mg tablet PO SCH ×4 (01:03→20:46)
[2018-07-08 03:00] VITALS: BP 138/88
[2018-07-08 06:00] VITALS: BP 145/78
[2018-07-08 07:30] LABS: ALANINE AMINOTRANSFERASE 65 U/L (12-78); ALBUMIN 1.9 G/DL (3.4-5.0); ALKALINE PHOSPHATASE 280 IU/L (46-116); ANION GAP 13 (8-16); ASPARTATE AMINO TRANSFERASE 141 U/L (10-37); BILIRUBIN,TOTAL 12.5 MG/DL (0.1-1.0); BLOOD UREA NITROGEN 22 MG/DL (7-18); BUN/CREATININE RATIO 8.9 (6.6-38.0); CALCIUM 8.5 MG/DL (8.5-10.1); CHLORIDE 97 MMOL/L (99-107); CREATININE 2.46 MG/DL (0.40-0.90); GLUCOSE 108 MG/DL (70-104); MAGNESIUM 1.8 MG/DL (1.5-2.4); SODIUM 137 MMOL/L (135-145); eGFR 21 ML/MIN
[2018-07-08 07:33] LABS: ALBUMIN/GLOBULIN RATIO 0.4 (1.1-1.5); PHOSPHORUS 4.2 MG/DL (2.3-4.5); TOTAL PROTEIN 6.7 G/DL (6.4-8.2)
[2018-07-08 07:35] LABS: HEMATOCRIT 25.9 % (35.0-45.0); HEMOGLOBIN 8.9 g/dl (12.0-16.0); MEAN CORPUSCULAR HEMOGLOBIN 31.7 PG (27.0-31.0); MEAN CORPUSCULAR HGB CONC 34.3 % (33.0-36.5); MEAN CORPUSCULAR VOLUME 92.3 FL (78-98); MEAN PLATELET VOLUME 10.2 FL (7.4-10.4); PLATELET COUNT 412 X10'3 (140-440); RED BLOOD COUNT 2.81 X10'6 (4.20-5.60); RED CELL DISTRIBUTION WIDTH 22.1 % (11.5-14.5)
[2018-07-08 07:37] LABS: POTASSIUM 2.7 MMOL/L (3.5-5.1)
[2018-07-08] MEDS ORDERED: potassium Cl 40MEQ/NS 500ml 500 ML IV PRN (07:50)
[2018-07-08] MEDS ORDERED: potassium Cl 20 mEq SR tablet PO PRN (07:50)
[2018-07-08] MEDS ORDERED: magnesium Cl slow-release 64mg tablet PO PRN (07:50)
[2018-07-08] MEDS ORDERED: magnesium 1gm/100ml D5W IVPB 100 ML IV PRN (07:50)
[2018-07-08] MEDS ORDERED: magnesium 4gm in 100ml NS 100 ML IV PRN (07:50)
[2018-07-08] MEDS: nicotine 14mg patch - 24hr TD SCH (08:00)
[2018-07-08] MEDS: K and/or MAG REPLACEMENT MC SCH (08:00)
[2018-07-08 08:07] LABS: WHITE BLOOD COUNT 25.8 X10'3 (4.5-11.0)
[2018-07-08 08:27] LABS: TOTAL CELLS COUNTED 100
[2018-07-08] MEDS: folic acid 1mg tablet PO SCH (08:27)
[2018-07-08] MEDS: pantoprazole 40 MG vial IV SCH (08:27)
[2018-07-08] MEDS: multivitamins, therapeutics tablet PO SCH (08:27)
[2018-07-08] MEDS: thiamine 100mg tablet PO SCH (08:27)
[2018-07-08] MEDS: heparin, porcine 5000 units/ml vial SQ SCH ×2 (08:27→20:47)
[2018-07-08] MEDS: lactobacillus rhamnosus 10,000 MMU CELLS/CAPSULE PO SCH ×2 (08:27→20:46)
[2018-07-08 08:28] LABS: ANISOCYTOSIS 3+; PLATELET ESTIMATE NORMAL; TARGET CELLS 2+
[2018-07-08 08:29] LABS: LARGE PLATELETS FEW
[2018-07-08] MEDS: Protein Smoothie (high protein) 240ml (8oz) cup PO SCH ×3 (08:58→18:00)
[2018-07-08] MEDS: potassium Cl 40MEQ/NS 500ml 500 ML IV PRN ×2 (09:27→14:38)
[2018-07-08 11:00] VITALS: BP 124/80
[2018-07-08 11:25] LABS: COMPLEMENT C3, SERUM 193 mg/dL (82-167); COMPLEMENT C4, SERUM 20 mg/dL (14-44)
[2018-07-08 15:00] VITALS: BP 136/83
[2018-07-08 19:00] VITALS: BP 137/78
[2018-07-08] MEDS: temazepam 15mg capsule PO PRN (20:46)
[2018-07-08 23:00] VITALS: BP 121/77
[2018-07-09] MEDS: diltiazem 30mg tablet PO SCH ×4 (01:41→19:38)
[2018-07-09] MEDS: vancomycin 125mg/5ml ORAL solution 5ml UD bottle PO SCH ×4 (01:41→19:38)
[2018-07-09 03:00] VITALS: BP 119/86
[2018-07-09 07:09] VITALS: BP 127/80
[2018-07-09] MEDS: Protein Smoothie (high protein) 240ml (8oz) cup PO SCH ×3 (08:00→17:29)
[2018-07-09] MEDS: K and/or MAG REPLACEMENT MC SCH (08:00)
[2018-07-09 08:12] LABS: HEMATOCRIT 24.7 % (35.0-45.0); HEMOGLOBIN 8.4 g/dl (12.0-16.0); MEAN CORPUSCULAR HEMOGLOBIN 31.8 PG (27.0-31.0); MEAN CORPUSCULAR HGB CONC 33.8 % (33.0-36.5); MEAN CORPUSCULAR VOLUME 94.1 FL (78-98); MEAN PLATELET VOLUME 10.9 FL (7.4-10.4); PLATELET COUNT 450 X10'3 (140-440); RED BLOOD COUNT 2.63 X10'6 (4.20-5.60); RED CELL DISTRIBUTION WIDTH 21.7 % (11.5-14.5); WHITE BLOOD COUNT 23.1 X10'3 (4.5-11.0)
[2018-07-09 08:17] LABS: ALANINE AMINOTRANSFERASE 59 U/L (12-78); ALBUMIN 1.8 G/DL (3.4-5.0); ALKALINE PHOSPHATASE 261 IU/L (46-116); ANION GAP 13 (8-16); ASPARTATE AMINO TRANSFERASE 130 U/L (10-37); BILIRUBIN,TOTAL 12.4 MG/DL (0.1-1.0); BLOOD UREA NITROGEN 18 MG/DL (7-18); BUN/CREATININE RATIO 8.4 (6.6-38.0); CALCIUM 8.2 MG/DL (8.5-10.1); CHLORIDE 101 MMOL/L (99-107); CREATININE 2.14 MG/DL (0.40-0.90); GLUCOSE 81 MG/DL (70-104); MAGNESIUM 1.6 MG/DL (1.5-2.4); SODIUM 140 MMOL/L (135-145); TOTAL CARBON DIOXIDE 26.2 MMOL/L (24-32); eGFR 25 ML/MIN
[2018-07-09 08:18] LABS: ALBUMIN/GLOBULIN RATIO 0.4 (1.1-1.5); PHOSPHORUS 4.2 MG/DL (2.3-4.5); POTASSIUM 3.1 MMOL/L (3.5-5.1); TOTAL PROTEIN 6.4 G/DL (6.4-8.2)
[2018-07-09] MEDS: pantoprazole 40 MG vial IV SCH (08:27)
[2018-07-09] MEDS: lactobacillus rhamnosus 10,000 MMU CELLS/CAPSULE PO SCH ×2 (08:28→19:38)
[2018-07-09] MEDS: folic acid 1mg tablet PO SCH (08:28)
[2018-07-09] MEDS: thiamine 100mg tablet PO SCH (08:28)
[2018-07-09] MEDS: multivitamins, therapeutics tablet PO SCH (08:28)
[2018-07-09] MEDS: nicotine 14mg patch - 24hr TD SCH (08:29)
[2018-07-09] MEDS: heparin, porcine 5000 units/ml vial SQ SCH ×2 (08:29→19:38)
[2018-07-09] MEDS ORDERED: LIDOcaine 1% 30ml vial 5 ML in potassium Cl 40MEQ/NS 500ml 500 ML IV PRN (09:00)
[2018-07-09 09:06] LABS: TOTAL CELLS COUNTED 100
[2018-07-09 09:07] LABS: ANISOCYTOSIS 3+; LARGE PLATELETS FEW; PLATELET ESTIMATE INCREASED; POLYCHROMASIA 1+; ROULEAUX 1+; TARGET CELLS 2+
[2018-07-09 12:30] VITALS: BP 128/81
[2018-07-09 15:00] VITALS: BP 123/78
[2018-07-09 19:00] VITALS: BP 138/83
[2018-07-09 23:00] VITALS: BP 137/87
[2018-07-10] MEDS: vancomycin 125mg/5ml ORAL solution 5ml UD bottle PO SCH ×4 (01:18→19:16)
[2018-07-10] MEDS: diltiazem 30mg tablet PO SCH ×4 (01:18→19:16)
[2018-07-10 03:00] VITALS: BP 116/75
[2018-07-10 06:00] VITALS: BP 133/84
[2018-07-10 06:41] LABS: MAGNESIUM 1.6 MG/DL (1.5-2.4)
[2018-07-10 06:59] LABS: POTASSIUM 2.8 MMOL/L (3.5-5.1)
[2018-07-10] MEDS: Protein Smoothie (high protein) 240ml (8oz) cup PO SCH ×3 (08:00→18:00)
[2018-07-10] MEDS: K and/or MAG REPLACEMENT MC SCH ×3 (08:00→16:42)
[2018-07-10 08:17] LABS: HEMATOCRIT 23.9 % (35.0-45.0); HEMOGLOBIN 7.8 g/dl (12.0-16.0); MEAN CORPUSCULAR HEMOGLOBIN 31.2 PG (27.0-31.0); MEAN CORPUSCULAR HGB CONC 32.8 % (33.0-36.5); MEAN CORPUSCULAR VOLUME 95.2 FL (78-98); PLATELET COUNT 428 X10'3 (140-440); RED BLOOD COUNT 2.51 X10'6 (4.20-5.60); RED CELL DISTRIBUTION WIDTH 21.9 % (11.5-14.5); WHITE BLOOD COUNT 22.3 X10'3 (4.5-11.0)
[2018-07-10] MEDS: lactobacillus rhamnosus 10,000 MMU CELLS/CAPSULE PO SCH ×2 (08:17→19:16)
[2018-07-10] MEDS: pantoprazole 40 MG vial IV SCH (08:17)
[2018-07-10] MEDS: folic acid 1mg tablet PO SCH (08:17)
[2018-07-10] MEDS: thiamine 100mg tablet PO SCH (08:18)
[2018-07-10] MEDS: heparin, porcine 5000 units/ml vial SQ SCH ×2 (08:18→19:16)
[2018-07-10] MEDS: potassium Cl 20 mEq SR tablet PO PRN ×3 (08:18→16:32)
[2018-07-10] MEDS: multivitamins, therapeutics tablet PO SCH (08:18)
[2018-07-10] MEDS: nicotine 14mg patch - 24hr TD SCH (08:19)
[2018-07-10 08:35] LABS: ALANINE AMINOTRANSFERASE 59 U/L (12-78); ALBUMIN 1.8 G/DL (3.4-5.0); ALBUMIN/GLOBULIN RATIO 0.4 (1.1-1.5); ALKALINE PHOSPHATASE 253 IU/L (46-116); ANION GAP 14 (8-16); ASPARTATE AMINO TRANSFERASE 124 U/L (10-37); BILIRUBIN,TOTAL 11.6 MG/DL (0.1-1.0); BLOOD UREA NITROGEN 17 MG/DL (7-18); BUN/CREATININE RATIO 8.2 (6.6-38.0); CALCIUM 7.8 MG/DL (8.5-10.1); CHLORIDE 100 MMOL/L (99-107); CREATININE 2.08 MG/DL (0.40-0.90); GLUCOSE 90 MG/DL (70-104); SODIUM 138 MMOL/L (135-145); TOTAL PROTEIN 6.3 G/DL (6.4-8.2); eGFR 25 ML/MIN
[2018-07-10 09:44] LABS: TOTAL CELLS COUNTED 100
[2018-07-10 09:45] LABS: ANISOCYTOSIS 3+; PLATELET ESTIMATE NORMAL
[2018-07-10 09:46] LABS: HYPOCHROMASIA 1+; POLYCHROMASIA 1+; TARGET CELLS 2+
[2018-07-10 11:00] VITALS: BP 129/84
[2018-07-10 15:00] VITALS: BP 128/80
[2018-07-10 18:00] VITALS: BP 123/78
[2018-07-10 22:00] VITALS: BP 128/80
[2018-07-11 02:00] VITALS: BP 127/81
[2018-07-11] MEDS: diltiazem 30mg tablet PO SCH ×4 (02:34→19:38)
[2018-07-11] MEDS: vancomycin 125mg/5ml ORAL solution 5ml UD bottle PO SCH ×4 (02:34→19:38)
[2018-07-11 06:00] VITALS: BP 130/78
[2018-07-11 07:02] LABS: HEMATOCRIT 26.4 % (35.0-45.0); HEMOGLOBIN 8.8 g/dl (12.0-16.0); MEAN CORPUSCULAR HEMOGLOBIN 31.7 PG (27.0-31.0); MEAN CORPUSCULAR HGB CONC 33.2 % (33.0-36.5); MEAN CORPUSCULAR VOLUME 95.3 FL (78-98); MEAN PLATELET VOLUME 10.2 FL (7.4-10.4); PLATELET COUNT 523 X10'3 (140-440); RED BLOOD COUNT 2.77 X10'6 (4.20-5.60); RED CELL DISTRIBUTION WIDTH 22.2 % (11.5-14.5); WHITE BLOOD COUNT 23.9 X10'3 (4.5-11.0)
[2018-07-11 07:28] LABS: ALANINE AMINOTRANSFERASE 60 U/L (12-78); ALBUMIN 1.9 G/DL (3.4-5.0); ALKALINE PHOSPHATASE 265 IU/L (46-116); ANION GAP 13 (8-16); ASPARTATE AMINO TRANSFERASE 136 U/L (10-37); BILIRUBIN,TOTAL 12.5 MG/DL (0.1-1.0); BLOOD UREA NITROGEN 16 MG/DL (7-18); CALCIUM 8.6 MG/DL (8.5-10.1); CHLORIDE 101 MMOL/L (99-107); GLUCOSE 79 MG/DL (70-104); MAGNESIUM 1.5 MG/DL (1.5-2.4); SODIUM 138 MMOL/L (135-145); TOTAL CARBON DIOXIDE 24.5 MMOL/L (24-32); eGFR 27 ML/MIN
[2018-07-11 07:38] LABS: ALBUMIN/GLOBULIN RATIO 0.4 (1.1-1.5); POTASSIUM 4.3 MMOL/L (3.5-5.1); TOTAL PROTEIN 6.9 G/DL (6.4-8.2)
[2018-07-11 07:54] LABS: PLATELET ESTIMATE INCREASED; TOTAL CELLS COUNTED 100
[2018-07-11 07:58] LABS: ANISOCYTOSIS 3+; LARGE PLATELETS FEW
[2018-07-11] MEDS: pantoprazole 40 MG vial IV SCH (08:49)
[2018-07-11] MEDS: lactobacillus rhamnosus 10,000 MMU CELLS/CAPSULE PO SCH ×2 (08:50→19:38)
[2018-07-11] MEDS: thiamine 100mg tablet PO SCH (08:51)
[2018-07-11] MEDS: folic acid 1mg tablet PO SCH (08:51)
[2018-07-11] MEDS: Protein Smoothie (high protein) 240ml (8oz) cup PO SCH ×3 (08:51→18:00)
[2018-07-11] MEDS: multivitamins, therapeutics tablet PO SCH (08:51)
[2018-07-11] MEDS: heparin, porcine 5000 units/ml vial SQ SCH ×2 (08:52→19:38)
[2018-07-11] MEDS: nicotine 14mg patch - 24hr TD SCH (08:54)
[2018-07-11 11:00] VITALS: BP 142/81
[2018-07-11 11:39] LABS: ALBUMIN, UR 31.9 % (.); ALPHA-1-GLOBULIN,UR 7.3 % (.); ALPHA-2-GLOBULIN,UR 9.2 % (.); BETA GLOBULIN, UR 31.3 % (.); GAMMA GLOBULIN,UR 20.4 % (.); PROTEIN,TOTAL,URINE 19.9 mg/dL (Not Estab.)
[2018-07-11] MEDS ORDERED: NICO-631 TD (13:55)
[2018-07-11] MEDS ORDERED: MULT-1179 PO (13:55)
[2018-07-11] MEDS ORDERED: VANC5VIA PO (13:55)
[2018-07-11 15:00] VITALS: BP 132/82
[2018-07-11] MEDS: ondansetron/PF 4mg/2ml inj IV PRN (17:26)
[2018-07-11 19:00] VITALS: BP 133/85
[2018-07-11 23:00] VITALS: BP 112/65
[2018-07-11] MEDS: diphenhydrAMINE 50 mg/ml inj IV PRN (23:30)
[2018-07-12] MEDS: vancomycin 125mg/5ml ORAL solution 5ml UD bottle PO SCH ×3 (02:29→13:59)
[2018-07-12] MEDS: diltiazem 30mg tablet PO SCH ×3 (02:29→13:59)
[2018-07-12 03:00] VITALS: BP 124/78
[2018-07-12 07:07] VITALS: BP 112/70
[2018-07-12 07:28] LABS: MAGNESIUM 1.3 MG/DL (1.5-2.4)
[2018-07-12 07:29] LABS: POTASSIUM 3.3 MMOL/L (3.5-5.1)
[2018-07-12] MEDS: K and/or MAG REPLACEMENT MC SCH (08:00)
[2018-07-12] MEDS: Protein Smoothie (high protein) 240ml (8oz) cup PO SCH ×2 (08:00→13:00)
[2018-07-12] MEDS: pantoprazole 40 MG vial IV SCH (08:43)
[2018-07-12] MEDS: lactobacillus rhamnosus 10,000 MMU CELLS/CAPSULE PO SCH (08:46)
[2018-07-12] MEDS: thiamine 100mg tablet PO SCH (08:46)
[2018-07-12] MEDS: folic acid 1mg tablet PO SCH (08:46)
[2018-07-12] MEDS: multivitamins, therapeutics tablet PO SCH (08:46)
[2018-07-12] MEDS: nicotine 14mg patch - 24hr TD SCH (08:47)
[2018-07-12] MEDS: heparin, porcine 5000 units/ml vial SQ SCH (08:48)
[2018-07-12] MEDS ORDERED: potassium Cl 20 mEq SR tablet PO STA (09:19)
[2018-07-12] MEDS ORDERED: magnesium oxide 400mg tablet PO ONE ×2 (09:20→11:20)
[2018-07-12 11:40] VITALS: BP 130/76
[2018-07-12] MEDS ORDERED: Protein Shake (high protein) 240ml (8oz) cup PO SCH (12:30)
[2018-07-12 15:00] VITALS: BP 130/78
[2018-07-12] MEDS ORDERED: VANC125C11 PO (20:40)
[2018-07-12] MEDS ORDERED: MULT1TAB74 PO (20:40)
[2018-07-12] MEDS ORDERED: ACET-2119 PO (20:42)
[2018-07-12] MEDS ORDERED: LIDO700A32 PO (20:42)
== END 2018-07-12 17:55 | disposition home or self-care (01) | DRG 871 ==
LOC: ER 17:45 → ED HOLD 23:38 → CMPBEDREQ 06-15 01:17 → SUR 3N 06-15 01:20 → CICU 2S 06-25 12:04 → PCU 3S 06-30 13:36
PROVIDERS: ADMIT Family Medicine; ATTEND Family Medicine
PROC: 30233N1 Transfusion of Nonautologous Red Blood Cells into Peripheral Vein, Percutaneous Approach (ICD-10-PCS; 2018-06-15)
PROC: 5A09357 Assistance with Respiratory Ventilation, Less than 24 Consecutive Hours, Continuous Positive Airway Pressure (ICD-10-PCS; principal; 2018-06-25)
DX: A41.02 Sepsis due to Methicillin resistant Staphylococcus aureus (principal); L89.213 Pressure ulcer of right hip, stage 3; E43 Unspecified severe protein-calorie malnutrition; J18.1 Lobar pneumonia, unspecified organism; J96.01 Acute respiratory failure with hypoxia; J81.0 Acute pulmonary edema; A04.72 Enterocolitis due to Clostridium difficile, not specified as recurrent; E87.1 Hypo-osmolality and hyponatremia; E87.2 Acidosis; L03.115 Cellulitis of right lower limb; N17.9 Acute kidney failure, unspecified; N39.0 Urinary tract infection, site not specified; Z68.1 Body mass index [BMI] 19.9 or less, adult; D62 Acute posthemorrhagic anemia; L02.415 Cutaneous abscess of right lower limb; F17.210 Nicotine dependence, cigarettes, uncomplicated; K70.30 Alcoholic cirrhosis of liver without ascites; B37.9 Candidiasis, unspecified; B86 Scabies; B85.1 Pediculosis due to Pediculus humanus corporis; F10.229 Alcohol dependence with intoxication, unspecified; D89.1 Cryoglobulinemia; E11.649 Type 2 diabetes mellitus with hypoglycemia without coma; E86.0 Dehydration; E87.6 Hypokalemia; I10 Essential (primary) hypertension; K70.10 Alcoholic hepatitis without ascites; Z59.0 Homelessness; Z86.010 Personal history of colon polyps; Z87.11 Personal history of peptic ulcer disease; Z79.899 Other long term (current) drug therapy
CPT/HCPCS: 36415; 36600; 70450; 71045; 74176; 74181; 76700; 76937; 80048; 80053; 80061; 80202; 80305; 80320; 81001; 82140; 82570; 82595; 82803; 82948; 83605; 83690; 83735; 84100; 84132; 84145; 84155; 84156; 84165; 84166; 84300; 84484; 84703; 85018; 85025; 85027; 85610; 86038; 86160; 86703; 86706; 86803; 86885; 86900; 86901; 86920; 87040; 87070; 87077; 87088; 87186; 87324; 87340; 87449; 92616; 93005; 93306; 94640; 94660; 94667; 94668; 94760; 96361; 96365; 96368; 96375; 97110; 97116; 97161; 97530; 99285; A4315; A4353; A4649; A6196; A6212; A6213; A6250; A6258; A6449; C9113; J0696; J1200; J1644; J1940; J2060; J2405; J2543; J3370; J3411; J3475; J3480; J3490; J7030; J7060; P9016; P9047

== ENCOUNTER 2018-07-12 18:50 | Emergency (ER) | payer MEDICAID, OTHER ==
[~2018-07-12] VITALS: Ht 149.9 cm; Wt 53.6 kg
[~2018-07-12 18:50] MED LIST changes: +MULT-1179 PO; +NICO-631 TD; +NO HOME MEDS; +VANC5VIA PO
[2018-07-12] MEDS ORDERED: potassium Cl 20 mEq SR tablet PO STA (20:36)
[2018-07-12] MEDS ORDERED: MULT1TAB74 PO (20:40)
[2018-07-12] MEDS ORDERED: LIDOcaine 5% patch TP ONE (20:40)
[2018-07-12] MEDS ORDERED: ketorolac trometh inj. 60 MG/2 ML VIAL IM ONE (20:40)
[2018-07-12] MEDS ORDERED: magnesium oxide 400mg tablet PO ONE (20:40)
[2018-07-12] MEDS ORDERED: VANC125C11 PO (20:40)
[2018-07-12] MEDS ORDERED: acetaminophen 325mg tablet PO ONE (20:40)
[2018-07-12] MEDS ORDERED: LIDO700A32 PO (20:42)
[2018-07-12] MEDS ORDERED: ACET-2119 PO (20:42)
[2018-07-12 21:06] VITALS: BP 120/79
== END 2018-07-12 21:07 | disposition home or self-care (01) ==
LOC: ER 18:50
DX: M54.5 Low back pain (principal); A04.72 Enterocolitis due to Clostridium difficile, not specified as recurrent; E87.8 Other disorders of electrolyte and fluid balance, not elsewhere classified; I10 Essential (primary) hypertension; G89.29 Other chronic pain; E11.9 Type 2 diabetes mellitus without complications; Z56.0 Unemployment, unspecified; Z87.11 Personal history of peptic ulcer disease; Z79.899 Other long term (current) drug therapy
CPT/HCPCS: 96372; 99284; J1885

== ENCOUNTER 2018-07-13 00:54 | Emergency (ER) | payer MEDICAID ==
[~2018-07-13] VITALS: Ht 149.9 cm; Wt 53.6 kg
[~2018-07-13 00:54] MED LIST changes: +ACET-2119 PO; -COMP-13; -ESOM20CA33 PO; +LIDO700A32 PO; +MULT1TAB74 PO; -NO HOME MEDS; -PNV1TABL56 PO; +VANC125C11 PO
[2018-07-13] MEDS ORDERED: acetaminophen 325mg tablet PO ONE (02:55)
[2018-07-13 03:11] VITALS: BP 135/82
== END 2018-07-13 03:45 | disposition home or self-care (01) ==
LOC: ER 00:54
DX: M54.5 Low back pain (principal); I10 Essential (primary) hypertension; E11.9 Type 2 diabetes mellitus without complications; Z79.2 Long term (current) use of antibiotics; Z79.899 Other long term (current) drug therapy; Z56.0 Unemployment, unspecified
CPT/HCPCS: 99284

== ENCOUNTER 2018-07-13 09:12 | Emergency (ER) | payer MEDICAID ==
[~2018-07-13] VITALS: Ht 149.9 cm; Wt 53.6 kg
[2018-07-13 09:17] VITALS: BP 131/74
[2018-07-13] MEDS ORDERED: LIDOcaine 5% patch TP ONE (09:30)
== END 2018-07-13 11:00 | disposition home or self-care (01) ==
LOC: ER 09:12
DX: G89.29 Other chronic pain (principal); M54.5 Low back pain; I10 Essential (primary) hypertension; E11.9 Type 2 diabetes mellitus without complications; Z79.2 Long term (current) use of antibiotics; Z79.899 Other long term (current) drug therapy; Z59.0 Homelessness; Z56.0 Unemployment, unspecified
CPT/HCPCS: 99284

== ENCOUNTER 2018-08-31 23:53 | Emergency (ER) | payer MEDICAID ==
[~2018-08-31] VITALS: Ht 149.9 cm; Wt 58.0 kg
[~2018-08-31 23:53] MED LIST changes: -ACET-2119 PO
[2018-09-01 01:30] LABS: CLARITY,URINE CLEAR (Clear); COLOR,URINE YELLOW (Yellow); GLUCOSE, URINE NEGATIVE (Neg); KETONES,URINE NEGATIVE (Neg); LEUKOCYTE ESTERASE ,URINE NEGATIVE (Neg); NITRITES, URINE NEGATIVE (Neg); OCCULT BLOOD,URINE NEGATIVE (Neg); PROTEIN,URINE TRACE mg/dl (Neg); UROBILINOGEN,URINE 0.2 E.U/dL (0.2-1.0)
[2018-09-01 01:31] LABS: URINE HCG NEGATIVE (NEG)
[2018-09-01 01:32] LABS: UA COLLECTION TYPE CLN CATCH MIDSTREAM
[2018-09-01 01:34] LABS: HEMOGLOBIN 11.5 g/dl (12.0-16.0); MEAN CORPUSCULAR HEMOGLOBIN 31.9 PG (27.0-31.0); MONOCYTES # (AUTO) 0.5 X10'3 (0-0.9); RED BLOOD COUNT 3.61 X10'6 (4.20-5.60); RED CELL DISTRIBUTION WIDTH 15.5 % (11.5-14.5)
[2018-09-01 01:35] LABS: BASOPHILS % (AUTO) 0.3 % (0-1); EOSINOPHILS % (AUTO) 0.5 % (0-6); HEMATOCRIT 32.9 % (35.0-45.0); LYMPHOCYTES # (AUTO) 1.4 X10'3 (1.1-4.8); LYMPHOCYTES % (AUTO) 17.9 % (21-51); MEAN CORPUSCULAR VOLUME 91.2 FL (78-98); MEAN PLATELET VOLUME 7.9 FL (7.4-10.4); MONOCYTES % (AUTO) 6.7 % (2-12); NEUTROPHILS # (AUTO) 5.9 X10'3 (1.8-7.7); NEUTROPHILS % (AUTO) 74.6 % (42-75); PLATELET COUNT 281 X10'3 (140-440); WHITE BLOOD COUNT 7.8 X10'3 (4.5-11.0)
[2018-09-01 01:36] LABS: ALANINE AMINOTRANSFERASE 40 U/L (12-78); ALBUMIN 2.5 G/DL (3.4-5.0); ALBUMIN/GLOBULIN RATIO 0.5 (1.1-1.5); ALKALINE PHOSPHATASE 253 IU/L (46-116); ANION GAP 14 (8-16); ASPARTATE AMINO TRANSFERASE 92 U/L (10-37); BILIRUBIN,TOTAL 0.8 MG/DL (0.1-1.0); BLOOD UREA NITROGEN 10 MG/DL (7-18); BUN/CREATININE RATIO 15.4 (6.6-38.0); CALCIUM 8.1 MG/DL (8.5-10.1); CHLORIDE 99 MMOL/L (99-107); CREATININE 0.65 MG/DL (0.40-0.90); GLUCOSE 70 MG/DL (70-104); POTASSIUM 3.1 MMOL/L (3.5-5.1); SODIUM 138 MMOL/L (135-145); TOTAL CARBON DIOXIDE 25.2 MMOL/L (24-32); TOTAL PROTEIN 7.2 G/DL (6.4-8.2); eGFR > 90 ML/MIN
[2018-09-01 01:38] LABS: INR 1.2 INR; PROTHROMBIN TIME 12.2 SECONDS (9.0-12.0)
[2018-09-01 01:40] LABS: BACTERIA,URINE 3+ /HPF (Neg); RBC,URINE 0-2 /HPF (0-2); SQUAMOUS EPITHELIAL CELL,UR MANY /LPF (FEW); WBC,URINE 0-4 /HPF (0-4)
[2018-09-01] MEDS ORDERED: potassium 10mEq/100ml NS w/LIDOcaine (10mg/bag) IV ONE ×2 (02:00→03:30)
[2018-09-01] MEDS ORDERED: LORazepam 2 mg/ml vial IV ONE (02:00)
[2018-09-01] MEDS ORDERED: normal saline 1000ML IV soln IVB ONE (02:00)
[2018-09-01 02:06] LABS: ETHANOL 0.216 GM/DL (0.0-0.010); LIPASE 219 U/L (73-393); MAGNESIUM 1.2 MG/DL (1.5-2.4)
[2018-09-01 02:13] LABS: URINE AMPHETAMINE SCREEN NEGATIVE (Neg); URINE BARBITUATE SCREEN NEGATIVE (Neg); URINE BENZODIAZEPINES SCREEN NEGATIVE (Neg); URINE CANNABINOID SCREEN NEGATIVE (Neg); URINE COCAINE SCREEN NEGATIVE (Neg); URINE METHADONE SCREEN NEGATIVE (Neg); URINE OPIATE SCREEN NEGATIVE (Neg); URINE PHENCYCLIDINE SCREEN NEGATIVE (Neg)
[2018-09-01] MEDS: magnesium 1gm/100ml D5W IVPB 100 ML IV SCH ×2 (02:41→04:20)
[2018-09-01] MEDS ORDERED: magnesium 1gm/100ml D5W IVPB 100 ML IV SCH (03:30)
[2018-09-01] MEDS ORDERED: magnesium oxide 400mg tablet PO ONE (03:30)
[2018-09-01] MEDS ORDERED: magnesium 2GM in 50ml NS 50 ML IV ONE (04:15)
[2018-09-01 05:28] VITALS: BP 122/86
== END 2018-09-01 06:09 | disposition home or self-care (01) ==
LOC: ER 23:54
DX: F10.129 Alcohol abuse with intoxication, unspecified (principal); K29.20 Alcoholic gastritis without bleeding; E87.6 Hypokalemia; E83.42 Hypomagnesemia; R19.7 Diarrhea, unspecified; I10 Essential (primary) hypertension; E11.9 Type 2 diabetes mellitus without complications; Z87.11 Personal history of peptic ulcer disease; Z59.0 Homelessness; Z56.0 Unemployment, unspecified; Z79.899 Other long term (current) drug therapy; Y90.9 Presence of alcohol in blood, level not specified
CPT/HCPCS: 36415; 80053; 80305; 80320; 81001; 81025; 83690; 83735; 85025; 85610; 96365; 96366; 96368; 96375; 99284; J2060; J3475; J3480; J7030

== ENCOUNTER 2018-10-07 18:07 | Emergency (ER) | payer MEDICAID ==
[~2018-10-07] VITALS: Ht 149.9 cm; Wt 51.0 kg
[2018-10-07 18:36] VITALS: BP 116/76
[2018-10-08] MEDS ORDERED: SULF1TAB49 PO (05:24)
== END 2018-10-07 21:27 | disposition left against medical advice (07) ==
LOC: ER 18:08
DX: S90.562A Insect bite (nonvenomous), left ankle, initial encounter (principal); Z53.21 Procedure and treatment not carried out due to patient leaving prior to being seen by health care provider; W57.XXXA Bitten or stung by nonvenomous insect and other nonvenomous arthropods, initial encounter; Y93.89 Activity, other specified; Y92.89 Other specified places as the place of occurrence of the external cause; Y99.9 Unspecified external cause status

== ENCOUNTER 2018-10-08 03:21 | Emergency (ER) | payer MEDICAID ==
[~2018-10-08] VITALS: Ht 149.9 cm; Wt 58.2 kg
[2018-10-08 03:31] VITALS: BP 128/74
[2018-10-08] MEDS ORDERED: SULF1TAB49 PO (05:24)
== END 2018-10-08 05:42 | disposition home or self-care (01) ==
LOC: ER 03:22
DX: L03.116 Cellulitis of left lower limb (principal); I10 Essential (primary) hypertension; E11.9 Type 2 diabetes mellitus without complications; Z87.11 Personal history of peptic ulcer disease; Z59.0 Homelessness; Z56.0 Unemployment, unspecified; Z79.899 Other long term (current) drug therapy
CPT/HCPCS: 99283

== ENCOUNTER 2019-11-27 15:21 | Emergency (ER) | payer MEDICAID ==
[~2019-11-27] VITALS: Ht 152.4 cm; Wt 88.0 kg
[2019-11-27 15:38] VITALS: BP 135/81
[2019-11-27] MEDS ORDERED: normal saline 1000ML IV soln IVB ONE (15:40)
[2019-11-27] MEDS ORDERED: ondansetron/PF 4mg/2ml inj IV ONE (15:40)
[2019-11-27 17:44] LABS: BASOPHILS # (AUTO) 0.1 X10'3 (0-0.2); BASOPHILS % (AUTO) 0.7 % (0-1); EOSINOPHILS % (AUTO) 0.4 % (0-6); HEMATOCRIT 43.5 % (35.0-45.0); HEMOGLOBIN 14.6 g/dl (12.0-16.0); LYMPHOCYTES % (AUTO) 26.2 % (21-51); MEAN CORPUSCULAR HEMOGLOBIN 30.8 PG (27.0-31.0); MEAN CORPUSCULAR HGB CONC 33.6 g/dL (33.0-36.5); MEAN CORPUSCULAR VOLUME 91.6 FL (78-98); MEAN PLATELET VOLUME 8.2 FL (7.4-10.4); MONOCYTES # (AUTO) 0.8 X10'3 (0-0.9); MONOCYTES % (AUTO) 6.7 % (2-12); NEUTROPHILS # (AUTO) 7.6 X10'3 (1.8-7.7); PLATELET COUNT 362 X10'3 (140-440); RED BLOOD COUNT 4.75 X10'6 (4.20-5.60); RED CELL DISTRIBUTION WIDTH 16.4 % (11.5-14.5); WHITE BLOOD COUNT 11.5 X10'3 (4.5-11.0)
[2019-11-27 17:56] LABS: PARTIAL THROMBOPLASTIN TIME 33 SECONDS (22-32)
[2019-11-27 17:58] LABS: ALANINE AMINOTRANSFERASE 22 U/L (12-78); ALBUMIN 3.6 G/DL (3.4-5.0); ALBUMIN/GLOBULIN RATIO 0.8 (1.1-1.5); ALKALINE PHOSPHATASE 124 IU/L (46-116); ANION GAP 17 (8-16); ASPARTATE AMINO TRANSFERASE 22 U/L (10-37); BILIRUBIN,TOTAL 0.4 MG/DL (0.1-1.0); BLOOD UREA NITROGEN 5 MG/DL (7-18); BUN/CREATININE RATIO 6.5 (6.6-38.0); CALCIUM 9.1 MG/DL (8.5-10.1); CHLORIDE 104 MMOL/L (99-107); CREATININE 0.77 MG/DL (0.40-0.90); GLUCOSE 98 MG/DL (70-104); LIPASE 240 U/L (73-393); POTASSIUM 3.5 MMOL/L (3.5-5.1); SODIUM 143 MMOL/L (135-145); TOTAL PROTEIN 8.2 G/DL (6.4-8.2); eGFR 80 ML/MIN
[2019-11-27 19:27] LABS: CLARITY,URINE CLEAR (Clear); COLOR,URINE YELLOW (Yellow); GLUCOSE, URINE NEGATIVE (Neg); KETONES,URINE NEGATIVE (Neg); LEUKOCYTE ESTERASE ,URINE NEGATIVE (Neg); NITRITES, URINE NEGATIVE (Neg); OCCULT BLOOD,URINE TRACE-INTACT (Neg); PH,URINE 6.5 (4.8-8.0); PROTEIN,URINE NEGATIVE (Neg); UROBILINOGEN,URINE 0.2 E.U/dL (0.2-1.0)
[2019-11-27 19:28] LABS: URINE HCG NEGATIVE (NEG)
[2019-11-27 19:38] LABS: UA COLLECTION TYPE CLN CATCH MIDSTREAM
[2019-11-27 19:40] LABS: BACTERIA,URINE NONE SEEN /HPF (Neg); RBC,URINE 0-2 /HPF (0-2); SQUAMOUS EPITHELIAL CELL,UR FEW /LPF (FEW); WBC,URINE 0-4 /HPF (0-4)
== END 2019-11-27 19:36 | disposition home or self-care (01) ==
LOC: ER 15:21
DX: R10.31 Right lower quadrant pain (principal); R50.9 Fever, unspecified; R11.2 Nausea with vomiting, unspecified; R19.7 Diarrhea, unspecified; I10 Essential (primary) hypertension; E11.9 Type 2 diabetes mellitus without complications; F10.10 Alcohol abuse, uncomplicated; Z59.0 Homelessness; Z56.0 Unemployment, unspecified; Z79.2 Long term (current) use of antibiotics; Z79.899 Other long term (current) drug therapy; Y90.9 Presence of alcohol in blood, level not specified
CPT/HCPCS: 36415; 74176; 80053; 81001; 81025; 83690; 85025; 85610; 85730; 96361; 96374; 99284; J2405; J7030